=== PATIENT | female | born 1940 | race American Indian/Alaskan Native ===

== ENCOUNTER 2017-04-14 10:57 | Inpatient (IN) | payer MEDICARE ==
[2017-04-14] MEDS ORDERED: NACL 0.9% 500 ML 500 ML IV ONE (11:08)
[2017-04-14] MEDS ORDERED: NACL 0.9% 1000 ML 1,000 ML ONE (11:19)
[2017-04-14] MEDS ORDERED: NACL 0.9% 1000 ML 1,000 ML IV ONE (11:26)
[2017-04-14 11:40] LABS: Bacteria,Urine 1+ /HPF (Negative); Bilirubin,Urine NEG (Negative); Blood,Urine SM (Negative); Ketones,Urine TR mg/dL (Negative); Leukocyte Esterase,Urine MOD (Negative); Mucus,Urine FEW /HPF; Nitrite,Urine NEG (Negative); Urobilinogen,Urine < 2.0 mg/dL (<2.0)
[2017-04-14 11:43] LABS: Basophils % (Auto) 0.3 % (0.0-1.8); Eosinophils % (Auto) 0.1 % (0.0-4.3); Hematocrit 20.8 % (30.3-42.9); Hemoglobin 6.3 gm/dl (10.1-14.3); Mean Corpuscular HGB Conc 31 % (30-34); Mean Corpuscular Volume 84 fl (79-97); Red Blood Count 2.47 M/mm3 (3.65-5.03); White Blood Count 13.6 K/mm3 (4.5-11.0)
[2017-04-14 11:44] LABS: Mean Corpuscular Hemoglobin 26 pg (28-32); Platelet Count 95 K/mm3 (140-440); Red Cell Distribution Width 20.5 % (13.2-15.2)
[2017-04-14 11:52] LABS: INR 1.21 (0.87-1.13)
--- NOTE | 2017-04-14 11:55 | Emergency Department Report ---
ED Fever HPI - General Chief Complaint: Fever Stated Complaint: FEVER Time Seen by Provider: 04/14/17 11:42 Source: patient - History of Present Illness Initial Comments: Patient is a 76-year-old female here with complaint of fever and abdominal pain. She is a correction resident was recently hospitalized at [facility] for approximately one week and return to emergency department with diffuse abdominal pain. Denies chills but does have a fever at outside facility. She's been complaining of some diarrhea. She states that she has been recently on antibiotics. Abdomen is slightly distended. She describes her pain is crampy and diffuse. Timing/Duration: just prior to arrival Fever Severity/Quality: greater than 100.5 F Associated Symptoms: abdominal pain. denies: chest pain, confusion, cough, diaphoresis, headache, muscle aches, nausea/vomiting ED Review of Systems ROS: Stated complaint: FEVER Other details as noted in HPI Comment: All other systems reviewed and negative Constitutional: fever, malaise Respiratory: denies: cough, orthopnea, shortness of breath, SOB with exertion Cardiovascular: denies: chest pain, palpitations Gastrointestinal: abdominal pain, nausea, diarrhea. denies: vomiting, constipation Musculoskeletal: denies: back pain Skin: denies: rash, lesions Neurological: denies: headache, weakness Psychiatric: denies: anxiety, depression ED Past Medical Hx - Past Medical History Previous Medical History?: Yes Hx Hypertension: Yes Hx Congestive Heart Failure: Yes Hx Diabetes: Yes Hx Deep Vein Thrombosis: Yes Hx Renal Disease: Yes Hx Asthma: Yes Additional medical history: weakness, lack of coordination, chf, irritable bowel syndrome, hyperosmomolality, hypernatremia, hypothyroidism, hyperlipidemia , PVD, DVT, GERD, lupus, - Social History Smoking Status: Never Smoker Substance Use Type: None - Medications Home Medications: Home Medications Medication Instructions Recorded Confirmed Last Taken Type Amitriptyline [Elavil] 25 mg PO QHS 03/27/17 03/27/17 Unknown History AtorvaSTATin [Lipitor] 40 mg PO QHS 03/27/17 03/27/17 Unknown History Hyoscyamine Subl [Levsin Sl 0.125 0.125 mg SL Q4HR PRN 03/27/17 03/27/17 Unknown History TAB] Magnesium Oxide [Mag-Ox] 400 mg PO BID 03/27/17 03/27/17 Unknown History Melatonin 1 mg PO QHS 03/27/17 03/27/17 Unknown History Metoprolol Succinate 25 mg PO DAILY 03/27/17 03/27/17 Unknown History Pantoprazole [Protonix TAB] 40 mg PO QDAY 03/27/17 03/27/17 Unknown History Saccharomyces Boulardii [Florastor] 250 mg PO BID 03/27/17 03/27/17 Unknown History predniSONE [Deltasone] 10 mg PO QDAY 03/27/17 03/27/17 Unknown History ED Physical Exam - General Limitations: Physical Limitation General appearance: alert, in no apparent distress - Head Head exam: Present: atraumatic, normocephalic - Eye Eye exam: Present: normal appearance, PERRL, EOMI - ENT ENT exam: Present: normal exam, normal orophraynx, mucous membranes dry - Neck Neck exam: Absent: tenderness, meningismus, lymphadenopathy - Respiratory Respiratory exam: Present: normal lung sounds bilaterally. Absent: respiratory distress, wheezes - Cardiovascular Cardiovascular Exam: Present: normal rhythm, tachycardia. Absent: irregular rhythm - GI/Abdominal GI/Abdominal exam: Present: soft, distended, tenderness (diffuse) - Extremities Exam Extremities exam: Present: normal inspection, full ROM - Back Exam Back exam: Present: full ROM. Absent: CVA tenderness (R), CVA tenderness (L) - Neurological Exam Neurological exam: Present: alert, oriented X3 - Psychiatric Psychiatric exam: Present: normal affect - Skin Skin exam: Present: warm, dry, intact ED Course Vital Signs 04/14/17 04/14/17 04/14/17 10:53 11:00 11:03 Temperature Pulse Rate 114 H 115 H Respiratory 20 19 Rate Blood Pressure 92/40 84/49 Blood Pressure [Left] O2 Sat by Pulse 100 100 100 Oximetry 04/14/17 04/14/17 04/14/17 11:15 11:16 11:18 Temperature 99.8 F H Pulse Rate 113 H 117 H Respiratory 19 18 19 Rate Blood Pressure 79/42 Blood Pressure 92/40 [Left] O2 Sat by Pulse 98 96 96 Oximetry 04/14/17 04/14/17 04/14/17 11:30 11:45 12:00 Temperature Pulse Rate 110 H 104 H 105 H Respiratory 19 18 17 Rate Blood Pressure 87/43 90/41 97/44 Blood Pressure [Left] O2 Sat by Pulse 96 95 100 Oximetry 04/14/17 04/14/17 04/14/17 12:15 12:30 12:45 Temperature Pulse Rate 109 H 106 H 105 H Respiratory 17 18 20 Rate Blood Pressure 87/39 99/39 95/53 Blood Pressure [Left] O2 Sat by Pulse 94 98 100 Oximetry ED Medical Decision Making - Lab Data Result diagrams: 04/14/17 11:19 04/14/17 11:19 Abnormal Lab Results 04/14/17 04/14/17 04/14/17 11:16 11:19 11:19 WBC 13.6 H RBC 2.47 L Hgb 6.3 L Hct 20.8 L MCV 84 MCH 26 L MCHC 31 RDW 20.5 H Plt Count 95 L Lymph % (Auto) 3.2 L [place] % (Auto) 7.6 H Eos % (Auto) 0.1 Baso % (Auto) 0.3 Lymph # 0.4 L [place] # 1.0 H Eos # 0.0 Baso # 0.0 Seg Neutrophils % 88.8 H Seg Neutrophils # 12.1 H PT 15.9 H INR 1.21 H VBG pH Urine Color Yellow Urine Turbidity Cloudy Urine pH 5.0 Ur Specific [place] 1.014 Urine Protein 30 mg/dl Urine Glucose (UA) Neg Urine Ketones Tr Urine Blood Sm Urine Nitrite Neg Urine Bilirubin Neg Urine Urobilinogen < 2.0 Ur Leukocyte Esterase Mod Urine WBC (Auto) 132.0 H Urine RBC (Auto) 13.0 U Epithel Cells (Auto) 1.0 Urine Bacteria (Auto) 1+ Urine Mucus Few 04/14/17 11:19 WBC RBC Hgb Hct MCV MCH MCHC RDW Plt Count Lymph % (Auto) [place] % (Auto) Eos % (Auto) Baso % (Auto) Lymph # [place] # Eos # Baso # Seg Neutrophils % Seg Neutrophils # PT INR VBG pH 7.396 Urine Color Urine Turbidity Urine pH Ur Specific [place] Urine Protein Urine Glucose (UA) Urine Ketones Urine Blood Urine Nitrite Urine Bilirubin Urine Urobilinogen Ur Leukocyte Esterase Urine WBC (Auto) Urine RBC (Auto) U Epithel Cells (Auto) Urine Bacteria (Auto) Urine Mucus - EKG Data -: EKG Interpreted by La - EKG Data 04/14/17 12:00 Sinus tach 116 normal axis normal intervals she has T-wave inversions in leads V5 and V6 in addition to I, II, and aVL. - Medical Decision Making Patient is a 76-year-old female with recent prolonged admission to the hospital here with abdominal pain and diarrhea. She has a low-grade temperature and diffuse abdominal tenderness on clinical exam. She states that she was recently on antibiotics. Her blood pressure is running low I spoke to her about this at length and she said states that she normally runs low. I reviewed some prior visits and her blood pressure does tend to run between 105 systolic and in the 80s systolic. Plan to give her 1 L of fluid because she is on dialysis. We'll cover empirically for sepsis with antibiotic IV antibiotics I have a higher suspicion for possible C. difficile at this point. Of note she has been on any coagulation in the past including Coumadin and Eliquis. I will need discussed this further if we decide to put further vascular access and her. I discussed the case with EMS and plan to admit her. We'll continue IV antibiotics at this point. At this point I do not have a clear source for her infection although she likely has a UTI this doesn't easily explain her abdominal pain. Portions of this chart were dictated with dictation software. There may be dictation errors contained within this note. Critical Care Time: Yes (40) Critical care attestation.: If time is entered above; I have spent that time in minutes in the direct care of this critically ill patient, excluding procedure time. ED Disposition Clinical Impression: Sepsis, UTI (urinary tract infection), Abdominal pain Disposition: [id number] OP ADMIT IP TO THIS HOSP Is pt being admited?: Yes Condition: Critical Referrals: PRIMARY CARE, [Primary Care Provider] - 3-5 Days
[2017-04-14 11:57] LABS: Albumin 2.1 g/dL (3.9-5); Albumin/Globulin Ratio 0.8 %; Alkaline Phosphatase 58 units/L (35-129); Anion Gap 21 mmol/L; Blood Urea Nitrogen 30 mg/dL (7-17); Calcium 7.8 mg/dL (8.4-10.2); Carbon Dioxide 18 mmol/L (22-30); Chloride 102.3 mmol/L (98-107); Glucose 116 mg/dL (65-100); Lipase 13 units/L (13-60); Potassium 5.2 mmol/L (3.6-5.0); Sodium 136 mmol/L (137-145); Total Protein 4.8 g/dL (6.3-8.2)
[2017-04-14] MEDS ORDERED: ZOSYN/NS 4.5GM/100ML 4.5 GM/100 ML VIAL IV ONE (11:57)
[2017-04-14] MEDS ORDERED: MORPHINE IV ONE (11:57)
[2017-04-14] MEDS ORDERED: VANCOMYCIN/NS 1 GM/250 ML 1 GM/250 ML BAG IV ONE (11:57)
--- NOTE | 2017-04-14 12:00 | XRay Report ---
Single view chest: Compared to 03/27/17. History: Possible sepsis. Findings: Cardiomegaly. Trachea is midline. Tip of right vascular catheter upper superior vena cava. Left CP angle not visualized. Linear densities are identified left lower lobe probably related to discoid atelectasis or scarring. No acute consolidation. Impression: Findings as detailed above.
[2017-04-14 12:01] LABS: Alanine Aminotransferase < 5 units/L (7-56)
[2017-04-14] MEDS ORDERED: LEVSIN SL SL PRN (14:21)
--- NOTE | 2017-04-14 14:21 | History and Physical Report ---
History of Present Illness Date of examination: 04/14/17 Date of admission: 04/14/17 Chief complaint: Fever and abdominal pain for 2 days History of present illness: ROSA Patient is a 76-year-old female here with complaint of fever and abdominal pain. She is a long term resident was recently hospitalized at [facility] for approximately one week and return to emergency department with diffuse abdominal pain. Denies chills but does have a fever at outside facility. She's been complaining of some diarrhea. She states that she has been recently on antibiotics. Abdomen is slightly distended. She describes her pain is crampy and diffu Fever greater than 100.5 F Associated Symptoms: abdominal pain. denies: chest pain, confusion, cough, diaphoresis, headache, muscle aches, nausea/vomiting - Past Medical History Previous Medical History?: Yes Hx Hypertension: Yes Hx Congestive Heart Failure: Yes Hx Diabetes: Yes Hx Deep Vein Thrombosis: Yes Hx Renal Disease: Yes Hx Asthma: Yes Additional medical history: weakness, lack of coordination, chf, irritable bowel syndrome, hyperosmomolality, hypernatremia, hypothyroidism, hyperlipidemia , PVD, DVT, GERD, lupus, - Social History Smoking Status: Never Smoker Substance Use Type: None Fam Hx Htn - Medications Home Medications: Home Medications Medication Instructions Recorded Confirmed Last Taken Type Amitriptyline [Elavil] 25 mg PO QHS 03/27/17 03/27/17 Unknown History AtorvaSTATin [Lipitor] 40 mg PO QHS 03/27/17 03/27/17 Unknown History Hyoscyamine Subl [Levsin Sl 0.125 0.125 mg SL Q4HR PRN 03/27/17 03/27/17 Unknown History TAB] Magnesium Oxide [Mag-Ox] 400 mg PO BID 03/27/17 03/27/17 Unknown History Melatonin 1 mg PO QHS 03/27/17 03/27/17 Unknown History Metoprolol Succinate 25 mg PO DAILY 03/27/17 03/27/17 Unknown History Pantoprazole [Protonix TAB] 40 mg PO QDAY 03/27/17 03/27/17 Unknown History Saccharomyces Boulardii [Florastor] 250 mg PO BID 03/27/17 03/27/17 Unknown History predniSONE [Deltasone] 10 mg PO QDAY 03/27/17 03/27/17 Unknown History ROS: Stated complaint: FEVER Other details as noted in HPI Comment: All other systems reviewed and negative Constitutional: fever, malaise Respiratory: denies: cough, orthopnea, shortness of breath, SOB with exertion Cardiovascular: denies: chest pain, palpitations Gastrointestinal: abdominal pain, nausea, diarrhea. denies: vomiting, constipation Musculoskeletal: denies: back pain Skin: denies: rash, lesions Neurological: denies: headache, weakness Psychiatric: denies: anxiety, depression Past History Past Medical History: ESRD Medications and Allergies Allergies Allergy/AdvReac Type Severity Reaction Status Date / Time milk Allergy Unknown Verified 03/27/17 14:02 wheat Allergy Unknown Verified 03/27/17 14:02 Home Medications Medication Instructions Recorded Confirmed Last Taken Type Amitriptyline [Elavil] 25 mg PO QHS 03/27/17 03/27/17 Unknown History AtorvaSTATin [Lipitor] 40 mg PO QHS 03/27/17 03/27/17 Unknown History Hyoscyamine Subl [Levsin Sl 0.125 0.125 mg SL Q4HR PRN 03/27/17 03/27/17 Unknown History TAB] Magnesium Oxide [Mag-Ox] 400 mg PO BID 03/27/17 03/27/17 Unknown History Melatonin 1 mg PO QHS 03/27/17 03/27/17 Unknown History Metoprolol Succinate 25 mg PO DAILY 03/27/17 03/27/17 Unknown History Pantoprazole [Protonix TAB] 40 mg PO QDAY 03/27/17 03/27/17 Unknown History Saccharomyces Boulardii [Florastor] 250 mg PO BID 03/27/17 03/27/17 Unknown History predniSONE [Deltasone] 10 mg PO QDAY 03/27/17 03/27/17 Unknown History Exam - Physical Exam Narrative exam: Lying comfortably - Constitutional Vitals: Temp Pulse Resp BP Pulse Ox 99.8 F H 108 H 18 97/52 98 04/14/17 11:16 04/14/17 13:15 04/14/17 13:15 04/14/17 13:15 04/14/17 13:15 General appearance: Present: no acute distress, well-nourished - EENT Eyes: Present: PERRL ENT: hearing intact, clear oral mucosa - Neck Neck: Present: supple, normal ROM - Respiratory Respiratory effort: normal Respiratory: bilateral: CTA - Cardiovascular Heart Sounds: Present: S1 & S2. Absent: rub, click - Extremities Extremities: pulses symmetrical, No edema Peripheral Pulses: within normal limits - Abdominal General gastrointestinal: Present: soft, non-tender, non-distended, normal bowel sounds Female genitourinary: Present: normal - Integumentary Integumentary: Present: clear, warm, dry - Musculoskeletal Musculoskeletal: gait normal, strength equal bilaterally - Psychiatric Psychiatric: appropriate mood/affect, intact judgment & insight - Neurologic Neurologic: CNII-XII intact, moves all extremities Results - Labs CBC & Chem 7: 04/14/17 11:19 04/14/17 11:19 Labs: Laboratory Last Values WBC 13.6 K/mm3 (4.5-11.0) H 04/14/17 11:19 RBC 2.47 M/mm3 (3.65-5.03) L 04/14/17 11:19 Hgb 6.3 gm/dl (10.1-14.3) L 04/14/17 11:19 Hct 20.8 % (30.3-42.9) L 04/14/17 11:19 MCV 84 fl (79-97) 04/14/17 11:19 MCH 26 pg (28-32) L 04/14/17 11:19 MCHC 31 % (30-34) 04/14/17 11:19 RDW 20.5 % (13.2-15.2) H 04/14/17 11:19 Plt Count 95 K/mm3 (140-440) L 04/14/17 11:19 Lymph % (Auto) 3.2 % (13.4-35.0) L 04/14/17 11:19 [place] % (Auto) 7.6 % (0.0-7.3) H 04/14/17 11:19 Eos % (Auto) 0.1 % (0.0-4.3) 04/14/17 11:19 Baso % (Auto) 0.3 % (0.0-1.8) 04/14/17 11:19 Lymph # 0.4 K/mm3 (1.2-5.4) L 04/14/17 11:19 [place] # 1.0 K/mm3 (0.0-0.8) H 04/14/17 11:19 Eos # 0.0 K/mm3 (0.0-0.4) 04/14/17 11:19 Baso # 0.0 K/mm3 (0.0-0.1) 04/14/17 11:19 Seg Neutrophils % 88.8 % (40.0-70.0) H 04/14/17 11:19 Seg Neutrophils # 12.1 K/mm3 (1.8-7.7) H 04/14/17 11:19 PT 15.9 Sec. (12.2-14.9) H 04/14/17 11:19 INR 1.21 (0.87-1.13) H 04/14/17 11:19 VBG pH 7.396 (7.320-7.420) 04/14/17 11:19 Sodium 136 mmol/L (137-145) L 04/14/17 11:19 Potassium 5.2 mmol/L (3.6-5.0) H 04/14/17 11:19 Chloride 102.3 mmol/L (98-107) 04/14/17 11:19 Carbon Dioxide 18 mmol/L (22-30) L 04/14/17 11:19 Anion Gap 21 mmol/L 04/14/17 11:19 BUN 30 mg/dL (7-17) H 04/14/17 11:19 Creatinine 2.4 mg/dL (0.7-1.2) H 04/14/17 11:19 Estimated GFR 24 ml/min 04/14/17 11:19 BUN/Creatinine Ratio 12.50 % 04/14/17 11:19 Glucose 116 mg/dL (65-100) H 04/14/17 11:19 Lactic Acid 3.60 mmol/L (0.7-2.0) H* 04/14/17 11:19 Calcium 7.8 mg/dL (8.4-10.2) L 04/14/17 11:19 Total Bilirubin 0.30 mg/dL (0.1-1.2) 04/14/17 11:19 AST 8 units/L (5-40) 04/14/17 11:19 ALT < 5 units/L (7-56) L 04/14/17 11:19 Alkaline Phosphatase 58 units/L (35-129) 04/14/17 11:19 Total Protein 4.8 g/dL (6.3-8.2) L 04/14/17 11:19 Albumin 2.1 g/dL (3.9-5) L 04/14/17 11:19 Albumin/Globulin Ratio 0.8 % 04/14/17 11:19 Lipase 13 units/L (13-60) 04/14/17 11:19 Urine Color Yellow (Yellow) 04/14/17 11:16 Urine Turbidity Cloudy (Clear) 04/14/17 11:16 Urine pH 5.0 (5.0-7.0) 04/14/17 11:16 Ur Specific [place] 1.014 (1.003-1.030) 04/14/17 11:16 Urine Protein 30 mg/dl mg/dL (Negative) 04/14/17 11:16 Urine Glucose (UA) Neg mg/dL (Negative) 04/14/17 11:16 Urine Ketones Tr mg/dL (Negative) 04/14/17 11:16 Urine Blood Sm (Negative) 04/14/17 11:16 Urine Nitrite Neg (Negative) 04/14/17 11:16 Urine Bilirubin Neg (Negative) 04/14/17 11:16 Urine Urobilinogen < 2.0 mg/dL (<2.0) 04/14/17 11:16 Ur Leukocyte Esterase Mod (Negative) 04/14/17 11:16 Urine WBC (Auto) 132.0 /HPF (0.0-6.0) H 04/14/17 11:16 Urine RBC (Auto) 13.0 /HPF (0.0-6.0) 04/14/17 11:16 U Epithel Cells (Auto) 1.0 /HPF (0-13.0) 04/14/17 11:16 Urine Bacteria (Auto) 1+ /HPF (Negative) 04/14/17 11:16 Urine Mucus Few /HPF 04/14/17 11:16 Blood Type B POSITIVE 04/14/17 12:57 Antibody Screen TNR 04/14/17 12:57 FAROOQ Antibody Screen Negative 04/14/17 12:57 Assessment and Plan Advance Directives: Yes (full code) VTE prophylaxis?: Chemical Plan of care discussed with patient/family: Yes - Patient Problems (1) Sepsis Current Visit: Yes Status: Acute Qualifiers: Sepsis type: sepsis due to unspecified organism Qualified Code(s): A41.9 - Sepsis, unspecified organism Plan to address problem: Sepsis probably secondary to urinary tract infection. Patient started on Zosyn and vancomycin. Check urine cultures. Patient had a femoral line inserted in the emergency room (2) Hypotension Current Visit: Yes Status: Acute Qualifiers: Hypotension type: unspecified hypotension type Trimester: T Qualified Code(s): I95.9 - Hypotension, unspecified Plan to address problem: IV fluids for now. Prevent volume load. Patient has end-stage renal disease. (3) UTI (urinary tract infection) Current Visit: Yes Status: Acute Qualifiers: Urinary tract infection type: acute cystitis Hematuria presence: H Indwelling urinary catheter type: I Encounter type: E Plan to address problem: Patient on Zosyn (4) End stage renal disease Current Visit: Yes Status: Acute Plan to address problem: Continue dialysis (5) Hyperlipidemia Current Visit: Yes Status: Chronic Qualifiers: Hyperlipidemia type: mixed hyperlipidemia Qualified Code(s): E78.2 - Mixed hyperlipidemia Plan to address problem: Continue atorvastatin (6) Diarrhea Current Visit: Yes Status: Acute Qualifiers: Diarrhea type: D Plan to address problem: Rule out C. difficile colitis. C. difficile antigen ordered. (7) DVT prophylaxis Current Visit: No Status: Chronic Plan to address problem: On heparin 5000 subcutaneous every 12
[2017-04-14] MEDS: ZOSYN/NS 2.25 GM/50ML 2.25 GM/50 ML BAG IV SCH ×2 (14:59→22:05)
[2017-04-14] MEDS ORDERED: VANCOMYCIN PHARMACY TO DOSE IV SCH (15:00)
[2017-04-14] MEDS ORDERED: PROTONIX PO ONE (15:03)
[2017-04-14] MEDS: PROTONIX PO SCH (15:07)
[2017-04-14] MEDS ORDERED: VANCOMYCIN 1,500 MG in NACL 0.9% 500 ML 500 ML IV ONE (16:00)
[2017-04-14] MEDS: MAG-OX PO SCH ×2 (18:48→22:05)
[2017-04-14] MEDS ORDERED: MELATONIN 1 MG PO SCH (22:00)
[2017-04-14] MEDS: ELAVIL PO SCH (22:05)
--- NOTE | 2017-04-14 23:07 | Event Note ---
Chart reviewed discussed with ER MD No indication for dialysis will follow Chart reviewed in ricardo
[2017-04-15 00:33] LABS: ISTAT Base Excess -1; ISTAT HCO3 22.4; ISTAT PCO2 28.4 (35-45); ISTAT PH 7.504 (7.35-7.45); ISTAT PO2 240 (80-105); ISTAT SO2 100; ISTAT TCO2 23
[2017-04-15] MEDS ORDERED: NACL 0.9% 500 ML 500 ML IV ONE (00:43)
--- NOTE | 2017-04-15 01:30 | XRay Report ---
FINAL REPORT PROCEDURE: XR ABDOMEN 1V AP TECHNIQUE: Abdominal radiograph, single supine AP view. HISTORY: abdominal pain COMPARISON: No prior studies are available for comparison. FINDINGS: Bowel gas pattern:Nonobstructive. There is significant gas and fecal debris in the colon.. Masses or calcifications:There has been previous cholecystectomy. Bony structures:No significant abnormality. Other:A catheter overlies the right lower pelvis. Multiple monitoring wires overlie the upper abdomen.. IMPRESSION: No acute abnormality
[2017-04-15] MEDS: ZOSYN/NS 2.25 GM/50ML 2.25 GM/50 ML BAG IV SCH ×4 (05:58→18:23)
[2017-04-15] MEDS: DILAUDID IV PRN ×3 (05:58→17:25)
[2017-04-15 07:55] LABS: Hematocrit 22.2 % (30.3-42.9); Hemoglobin 7.3 gm/dl (10.1-14.3); Mean Corpuscular HGB Conc 33 % (30-34); Mean Corpuscular Hemoglobin 27 pg (28-32); Mean Corpuscular Volume 82 fl (79-97); Platelet Count 94 K/mm3 (140-440); Red Blood Count 2.71 M/mm3 (3.65-5.03); Red Cell Distribution Width 18.3 % (13.2-15.2); White Blood Count 13.7 K/mm3 (4.5-11.0)
--- NOTE | 2017-04-15 08:12 | Progress Note ---
<TURNER CANSECO - Last Filed: 04/15/17 12:38> Assessment and Plan Assessment and plan: Sepsis Elevated urine WBC and leukocytosis Most likely secondary to urinary tract infection Urine culture and blood culture collected and we will follow cultures Patient started on empiric antibiotic treatment Zosyn and vancomycin Patient had a femoral line inserted in the emergency room Gentle IV fluid hydration Hypotension Gently IV fluids because patient end-stage renal disease. Closely monitor blood pressure Leukocytosis Most likely secondary to urinary tract infection We will repeat CBC UTI (urinary tract infection) Patient was started on Zosyn and vancomycin Gently IV fluids End stage renal disease Hemodialysis Managed By nephrology Hyperlipidemia Continue on home antilipid pills Discussed with the patient about the importance of physical exercise, low-fat diet reducing intake of high-fat foods to improve cardiovascular diseases. Diarrhea Rule out C. difficile colitis. C. difficile antigen pending DVT prophylaxis On heparin 5000 subcutaneous every 12 History Interval history: Patient has uneventful overnight, she denies shortness of breath, chest pain or lightheadedness. Hospitalist Physical - Constitutional Vitals: Temp Pulse Resp BP Pulse Ox 99.0 F 65 20 95/51 98 04/15/17 04:41 04/15/17 04:41 04/15/17 04:41 04/15/17 04:41 04/15/17 04:41 General appearance: Present: no acute distress, well-nourished - EENT Eyes: Present: PERRL ENT: hearing intact - Neck Neck: Present: supple - Respiratory Respiratory effort: normal Results - Labs CBC & Chem 7: 04/15/17 07:42 04/15/17 07:42 Labs: Laboratory Last Values WBC 13.7 K/mm3 (4.5-11.0) H 04/15/17 07:42 RBC 2.71 M/mm3 (3.65-5.03) L 04/15/17 07:42 Hgb 7.3 gm/dl (10.1-14.3) L 04/15/17 07:42 Hct 22.2 % (30.3-42.9) L 04/15/17 07:42 MCV 82 fl (79-97) 04/15/17 07:42 MCH 27 pg (28-32) L 04/15/17 07:42 MCHC 33 % (30-34) 04/15/17 07:42 RDW 18.3 % (13.2-15.2) H 04/15/17 07:42 Plt Count 94 K/mm3 (140-440) L 04/15/17 07:42 Lymph % (Auto) 3.2 % (13.4-35.0) L 04/14/17 11:19 [place] % (Auto) 7.6 % (0.0-7.3) H 04/14/17 11:19 Eos % (Auto) 0.1 % (0.0-4.3) 04/14/17 11:19 Baso % (Auto) 0.3 % (0.0-1.8) 04/14/17 11:19 Lymph # 0.4 K/mm3 (1.2-5.4) L 04/14/17 11:19 [place] # 1.0 K/mm3 (0.0-0.8) H 04/14/17 11:19 Eos # 0.0 K/mm3 (0.0-0.4) 04/14/17 11:19 Baso # 0.0 K/mm3 (0.0-0.1) 04/14/17 11:19 Seg Neutrophils % 88.8 % (40.0-70.0) H 04/14/17 11:19 Seg Neutrophils # 12.1 K/mm3 (1.8-7.7) H 04/14/17 11:19 PT 15.9 Sec. (12.2-14.9) H 04/14/17 11:19 INR 1.21 (0.87-1.13) H 04/14/17 11:19 POC ABG pH 7.504 (7.35-7.45) H 04/15/17 00:24 POC ABG pCO2 28.4 (35-45) L 04/15/17 00:24 POC ABG pO2 240 (80-105) H 04/15/17 00:24 POC ABG HCO3 22.4 04/15/17 00:24 POC ABG Total CO2 23 04/15/17 00:24 POC ABG O2 Sat 100 04/15/17 00:24 POC ABG Base Excess -1 04/15/17 00:24 VBG pH 7.396 (7.320-7.420) 04/14/17 11:19 FiO2 50 % 04/15/17 00:24 Sodium 136 mmol/L (137-145) L 04/14/17 11:19 Potassium 5.2 mmol/L (3.6-5.0) H 04/14/17 11:19 Chloride 102.3 mmol/L (98-107) 04/14/17 11:19 Carbon Dioxide 18 mmol/L (22-30) L 04/14/17 11:19 Anion Gap 21 mmol/L 04/14/17 11:19 BUN 30 mg/dL (7-17) H 04/14/17 11:19 Creatinine 2.4 mg/dL (0.7-1.2) H 04/14/17 11:19 Estimated GFR 24 ml/min 04/14/17 11:19 BUN/Creatinine Ratio 12.50 % 04/14/17 11:19 Glucose 116 mg/dL (65-100) H 04/14/17 11:19 POC Glucose 96 (70-105) 04/15/17 00:06 Lactic Acid 1.70 mmol/L (0.7-2.0) 04/14/17 14:05 Calcium 7.8 mg/dL (8.4-10.2) L 04/14/17 11:19 Total Bilirubin 0.30 mg/dL (0.1-1.2) 04/14/17 11:19 AST 8 units/L (5-40) 04/14/17 11:19 ALT < 5 units/L (7-56) L 04/14/17 11:19 Alkaline Phosphatase 58 units/L (35-129) 04/14/17 11:19 Total Protein 4.8 g/dL (6.3-8.2) L 04/14/17 11:19 Albumin 2.1 g/dL (3.9-5) L 04/14/17 11:19 Albumin/Globulin Ratio 0.8 % 04/14/17 11:19 Lipase 13 units/L (13-60) 04/14/17 11:19 Urine Color Yellow (Yellow) 04/14/17 11:16 Urine Turbidity Cloudy (Clear) 04/14/17 11:16 Urine pH 5.0 (5.0-7.0) 04/14/17 11:16 Ur Specific [place] 1.014 (1.003-1.030) 04/14/17 11:16 Urine Protein 30 mg/dl mg/dL (Negative) 04/14/17 11:16 Urine Glucose (UA) Neg mg/dL (Negative) 04/14/17 11:16 Urine Ketones Tr mg/dL (Negative) 04/14/17 11:16 Urine Blood Sm (Negative) 04/14/17 11:16 Urine Nitrite Neg (Negative) 04/14/17 11:16 Urine Bilirubin Neg (Negative) 04/14/17 11:16 Urine Urobilinogen < 2.0 mg/dL (<2.0) 04/14/17 11:16 Ur Leukocyte Esterase Mod (Negative) 04/14/17 11:16 Urine WBC (Auto) 132.0 /HPF (0.0-6.0) H 04/14/17 11:16 Urine RBC (Auto) 13.0 /HPF (0.0-6.0) 04/14/17 11:16 U Epithel Cells (Auto) 1.0 /HPF (0-13.0) 04/14/17 11:16 Urine Bacteria (Auto) 1+ /HPF (Negative) 04/14/17 11:16 Urine Mucus Few /HPF 04/14/17 11:16 Blood Type B POSITIVE 04/14/17 12:57 Antibody Screen TNR 04/14/17 12:57 FAROOQ Antibody Screen Negative 04/14/17 12:57 Crossmatch See Detail 04/14/17 12:57 <LAURA SCHERER - Last Filed: 04/15/17 19:14> Assessment and Plan Assessment and plan: I saw and evaluated the patient. I agree with the findings and the plan of care as documented in the Nurse Practitioner's~note, with the following corrections and additions. Patient has positive blood cultures for gram-positive cocci, patient is already on vancomycin and Zosyn In the setting of end-stage renal disease, gram-positive bacteremia, ID consult Repeat blood cultures, and follow culture sensitivities Patient's condition and treatment plan discussed in detail with the patient, family member, nose and the case management Hospitalist Physical - Constitutional Vitals: Temp Pulse Resp BP Pulse Ox 98.4 F 115 H 20 117/61 98 04/15/17 12:00 04/15/17 12:00 04/15/17 12:00 04/15/17 12:00 04/15/17 12:00 Results - Labs CBC & Chem 7: 04/15/17 07:42 04/15/17 07:42 Labs: Laboratory Last Values WBC 13.7 K/mm3 (4.5-11.0) H 04/15/17 07:42 RBC 2.71 M/mm3 (3.65-5.03) L 04/15/17 07:42 Hgb 7.3 gm/dl (10.1-14.3) L 04/15/17 07:42 Hct 22.2 % (30.3-42.9) L 04/15/17 07:42 MCV 82 fl (79-97) 04/15/17 07:42 MCH 27 pg (28-32) L 04/15/17 07:42 MCHC 33 % (30-34) 04/15/17 07:42 RDW 18.3 % (13.2-15.2) H 04/15/17 07:42 Plt Count 94 K/mm3 (140-440) L 04/15/17 07:42 Lymph % (Auto) 3.2 % (13.4-35.0) L 04/14/17 11:19 [place] % (Auto) 7.6 % (0.0-7.3) H 04/14/17 11:19 Eos % (Auto) 0.1 % (0.0-4.3) 04/14/17 11:19 Baso % (Auto) 0.3 % (0.0-1.8) 04/14/17 11:19 Lymph # 0.4 K/mm3 (1.2-5.4) L 04/14/17 11:19 [place] # 1.0 K/mm3 (0.0-0.8) H 04/14/17 11:19 Eos # 0.0 K/mm3 (0.0-0.4) 04/14/17 11:19 Baso # 0.0 K/mm3 (0.0-0.1) 04/14/17 11:19 Seg Neutrophils % 88.8 % (40.0-70.0) H 04/14/17 11:19 Seg Neutrophils # 12.1 K/mm3 (1.8-7.7) H 04/14/17 11:19 PT 15.9 Sec. (12.2-14.9) H 04/14/17 11:19 INR 1.21 (0.87-1.13) H 04/14/17 11:19 POC ABG pH 7.504 (7.35-7.45) H 04/15/17 00:24 POC ABG pCO2 28.4 (35-45) L 04/15/17 00:24 POC ABG pO2 240 (80-105) H 04/15/17 00:24 POC ABG HCO3 22.4 04/15/17 00:24 POC ABG Total CO2 23 04/15/17 00:24 POC ABG O2 Sat 100 04/15/17 00:24 POC ABG Base Excess -1 04/15/17 00:24 VBG pH 7.396 (7.320-7.420) 04/14/17 11:19 FiO2 50 % 04/15/17 00:24 Sodium 141 mmol/L (137-145) 04/15/17 07:42 Potassium 4.8 mmol/L (3.6-5.0) 04/15/17 07:42 Chloride 108.6 mmol/L (98-107) H 04/15/17 07:42 Carbon Dioxide 19 mmol/L (22-30) L 04/15/17 07:42 Anion Gap 18 mmol/L 04/15/17 07:42 BUN 32 mg/dL (7-17) H 04/15/17 07:42 Creatinine 2.3 mg/dL (0.7-1.2) H 04/15/17 07:42 Estimated GFR 25 ml/min 04/15/17 07:42 BUN/Creatinine Ratio 13.91 % 04/15/17 07:42 Glucose 79 mg/dL (65-100) 04/15/17 07:42 POC Glucose 96 (70-105) 04/15/17 00:06 Lactic Acid 1.70 mmol/L (0.7-2.0) 04/14/17 14:05 Calcium 7.4 mg/dL (8.4-10.2) L 04/15/17 07:42 Total Bilirubin 0.30 mg/dL (0.1-1.2) 04/14/17 11:19 AST 8 units/L (5-40) 04/14/17 11:19 ALT < 5 units/L (7-56) L 04/14/17 11:19 Alkaline Phosphatase 58 units/L (35-129) 04/14/17 11:19 Total Protein 4.8 g/dL (6.3-8.2) L 04/14/17 11:19 Albumin 2.1 g/dL (3.9-5) L 04/14/17 11:19 Albumin/Globulin Ratio 0.8 % 04/14/17 11:19 Lipase 13 units/L (13-60) 04/14/17 11:19 Urine Color Yellow (Yellow) 04/14/17 11:16 Urine Turbidity Cloudy (Clear) 04/14/17 11:16 Urine pH 5.0 (5.0-7.0) 04/14/17 11:16 Ur Specific [place] 1.014 (1.003-1.030) 04/14/17 11:16 Urine Protein 30 mg/dl mg/dL (Negative) 04/14/17 11:16 Urine Glucose (UA) Neg mg/dL (Negative) 04/14/17 11:16 Urine Ketones Tr mg/dL (Negative) 04/14/17 11:16 Urine Blood Sm (Negative) 04/14/17 11:16 Urine Nitrite Neg (Negative) 04/14/17 11:16 Urine Bilirubin Neg (Negative) 04/14/17 11:16 Urine Urobilinogen < 2.0 mg/dL (<2.0) 04/14/17 11:16 Ur Leukocyte Esterase Mod (Negative) 04/14/17 11:16 Urine WBC (Auto) 132.0 /HPF (0.0-6.0) H 04/14/17 11:16 Urine RBC (Auto) 13.0 /HPF (0.0-6.0) 04/14/17 11:16 U Epithel Cells (Auto) 1.0 /HPF (0-13.0) 04/14/17 11:16 Urine Bacteria (Auto) 1+ /HPF (Negative) 04/14/17 11:16 Urine Mucus Few /HPF 04/14/17 11:16 Blood Type B POSITIVE 04/14/17 12:57 Antibody Screen TNR 04/14/17 12:57 FAROOQ Antibody Screen Negative 04/14/17 12:57 Crossmatch See Detail 04/14/17 12:57
[2017-04-15 08:15] LABS: BUN/Creatinine Ratio 13.91; Calcium 7.4 mg/dL (8.4-10.2); Chloride 108.6 mmol/L (98-107); Potassium 4.8 mmol/L (3.6-5.0)
--- NOTE | 2017-04-15 09:44 | Admit Criteria Form ---
Admission Criteria Documentation: SEPSIS and OTHER FEBRILE ILLNESS, W/O FOCAL INFECTION Clinical Indications for Admission to Inpatient Care ( Place 'X' for any and all applicable criteria): Admission is indicated for ANY ONE of the following (1)(2)(3)(4): [ ] I. Bacteremia [ ]II. Suspected or identified specific infection requiring hospitalization (eg, meningitis, endocarditis) [ ]III. Hemodynamic instability [ ]IV. Altered mental status [ ]V. Failure or unavailability of outpatient antimicrobial treatment [ ]. Hypoxemia [ ]VII. Seizures [ ]VIII. High-risk febrile neutropenia [ ]IX. Need for parenteral antibiotic in patient who is likely to abuse vascular access device (eg, injection drug user) [A](7) [ ]X. Temperature greater than 104.9 degrees F (40.5 degrees C) (oral) [X]XI. Inpatient admission required rather than observation care because of ANY ONE of the following: [ ]1) Specific infection identified that is too severe for outpatient treatment or observation care trial [ ]2) Metabolic disorder (eg, hypoglycemia, hyperglycemia, metabolic acidosis) that is severe or persistent [ ]3) Temperature greater than 103.1 degrees F (39.5 degrees C) ( oral) that is not responsive to observation care treatment [ ]4) IV fluid to replace significant ongoing (eg, for over 24 hours) losses (> 3 L/m2 per day) [ ]5) Supplemental oxygen or respiratory treatments for over 24 hours that is performable only in acute inpatient setting [ ]6) Parenteral nutrition regimen need that must be implemented on inpatient basis [ ]7) Strict or protective (eg, laminar flow) isolation [X]8) Other condition, treatment or monitoring requiring inpatient admission Extended stay beyond goal length of stay may be needed for(1)(3) [ ]a) Sepsis or septic shock(22) [ ]b) Positive blood cultures [ ]c) Insufficient oral intake [ ]d) High-risk febrile neutropenia(29)(30) [ ]e) Continued fever and clinical instability [ ]f) Clinically active comorbid illness (e.g,heart failure, renal failure , diabetes) The original [facility] content created by Faye Oliveira has been revised. The portions of the content which have been revised are identified through the use of italic text or in bold, and Faye Oliveira has neither reviewed nor approved the modified material. All other unmodified content is copyright [facility]. Please see references footnoted in the original [facility] edition 2016 Admission Criteria Met: Yes
--- NOTE | 2017-04-15 10:15 | Consultation ---
History of Present Illness - History of Present Illness Thank you for the consultation [id number] dictated Patient was evaluated today Assessment and plan End-stage renal disease patient is currently on maintenance hemodialysis, will receive hemodialysis during this admission at least 3 times per week monitor dialysis related labs Hypertension and volume to monitor and follow ultrafiltration as tolerated Blood culture currently positive with gram-positive cocci in clusters needs coverage of antibiotic infectious disease consultation in my opinion, dameon CVC source Admitted with sepsis-like picture has had lactic acidosis which is currently better Anemia in end-stage renal disease to follow erythropoietin as needed, appears to be moderately severe patient will require 1-2 unit of packed red blood cell transfusion Renal mass needs to see urology please consult Pancreatic mass / colonic stricture to see GI Please order for type and cross Secondary hyperparathyroidism to monitor phosphorus and PTH level Hypotension better Adequately counseled and educated regarding renal related issues We'll continue to follow and make recommendation from renal standpoint Past History Past Medical History: ESRD Medications and Allergies Allergies Allergy/AdvReac Type Severity Reaction Status Date / Time milk Allergy Unknown Verified 03/27/17 14:02 wheat Allergy Unknown Verified 03/27/17 14:02 Home Medications Medication Instructions Recorded Confirmed Last Taken Type Amitriptyline [Elavil] 25 mg PO QHS 03/27/17 03/27/17 Unknown History AtorvaSTATin [Lipitor] 40 mg PO QHS 03/27/17 03/27/17 Unknown History Hyoscyamine Subl [Levsin Sl 0.125 0.125 mg SL Q4HR PRN 03/27/17 03/27/17 Unknown History TAB] Magnesium Oxide [Mag-Ox] 400 mg PO BID 03/27/17 03/27/17 Unknown History Melatonin 1 mg PO QHS 03/27/17 03/27/17 Unknown History Metoprolol Succinate 25 mg PO DAILY 03/27/17 03/27/17 Unknown History Pantoprazole [Protonix TAB] 40 mg PO QDAY 03/27/17 03/27/17 Unknown History Saccharomyces Boulardii [Florastor] 250 mg PO BID 03/27/17 03/27/17 Unknown History predniSONE [Deltasone] 10 mg PO QDAY 03/27/17 03/27/17 Unknown History Active Meds: Active Medications Amitriptyline HCl (Elavil) 25 mg PO QHS [facility] Last Admin: 04/14/17 22:05 Dose: 25 mg Atorvastatin Calcium (Lipitor) 40 mg PO QHS [facility] Last Admin: 04/14/17 22:05 Dose: 40 mg Hydromorphone HCl (Dilaudid) 0.25 mg IV Q3H PRN PRN Reason: Pain, Moderate (4-6) Last Admin: 04/15/17 05:58 Dose: 0.25 mg Hyoscyamine (Levsin Sl) 0.125 mg SL Q4HR PRN PRN Reason: Spasms Piperacillin Sod/Tazobactam Sod (Zosyn/Ns 2.25 Gm/50ml) 2.25 gm in 50 mls @ 100 mls/hr IV Q6HR [facility] PRN Reason: Protocol Magnesium Oxide (Mag-Ox) 400 mg PO BID [facility] Last Admin: 04/14/17 22:05 Dose: 400 mg Metoprolol Succinate (Toprol Xl) 25 mg PO DAILY [facility] Pantoprazole Sodium (Protonix) 40 mg PO QDAY [facility] Last Admin: 04/14/17 15:07 Dose: 40 mg Pneumococcal Polyvalent Vaccine (Pneumovax 23) 0.5 ml IM .ONCE ONE Stop: 04/15/17 12:01 Prednisone (Deltasone) 10 mg PO QDAY [facility] Vancomycin HCl (Vancomycin Pharmacy To Dose) 1 each IV PKCONSULT [facility] PRN Reason: Protocol Exam - Vital Signs Vital signs: Vital Signs Pulse Ox 100 04/14/17 10:53 Results - Lab Results 04/18/17 06:42 04/18/17 06:42 Most recent lab results Calcium 7.4 mg/dL (8.4-10.2) L 04/15/17 07:42
[2017-04-15] MEDS: DELTASONE PO SCH (11:05)
[2017-04-15] MEDS: MAG-OX PO SCH ×2 (11:05→21:58)
[2017-04-15] MEDS: PROTONIX PO SCH (11:05)
[2017-04-15] MEDS: TOPROL XL PO SCH (11:06)
--- NOTE | 2017-04-15 11:58 | Progress Note ---
<LAURA SCHERER - Last Filed: 04/15/17 11:58> Hospitalist Physical - Constitutional Vitals: Temp Pulse Resp BP Pulse Ox 97 F L 113 H 20 100/62 100 04/15/17 08:00 04/15/17 08:00 04/15/17 08:00 04/15/17 11:06 04/15/17 09:01 General appearance: Present: no acute distress, well-nourished Results - Labs CBC & Chem 7: 04/15/17 07:42 04/15/17 07:42 Labs: Laboratory Last Values WBC 13.7 K/mm3 (4.5-11.0) H 04/15/17 07:42 RBC 2.71 M/mm3 (3.65-5.03) L 04/15/17 07:42 Hgb 7.3 gm/dl (10.1-14.3) L 04/15/17 07:42 Hct 22.2 % (30.3-42.9) L 04/15/17 07:42 MCV 82 fl (79-97) 04/15/17 07:42 MCH 27 pg (28-32) L 04/15/17 07:42 MCHC 33 % (30-34) 04/15/17 07:42 RDW 18.3 % (13.2-15.2) H 04/15/17 07:42 Plt Count 94 K/mm3 (140-440) L 04/15/17 07:42 Lymph % (Auto) 3.2 % (13.4-35.0) L 04/14/17 11:19 [place] % (Auto) 7.6 % (0.0-7.3) H 04/14/17 11:19 Eos % (Auto) 0.1 % (0.0-4.3) 04/14/17 11:19 Baso % (Auto) 0.3 % (0.0-1.8) 04/14/17 11:19 Lymph # 0.4 K/mm3 (1.2-5.4) L 04/14/17 11:19 [place] # 1.0 K/mm3 (0.0-0.8) H 04/14/17 11:19 Eos # 0.0 K/mm3 (0.0-0.4) 04/14/17 11:19 Baso # 0.0 K/mm3 (0.0-0.1) 04/14/17 11:19 Seg Neutrophils % 88.8 % (40.0-70.0) H 04/14/17 11:19 Seg Neutrophils # 12.1 K/mm3 (1.8-7.7) H 04/14/17 11:19 PT 15.9 Sec. (12.2-14.9) H 04/14/17 11:19 INR 1.21 (0.87-1.13) H 04/14/17 11:19 POC ABG pH 7.504 (7.35-7.45) H 04/15/17 00:24 POC ABG pCO2 28.4 (35-45) L 04/15/17 00:24 POC ABG pO2 240 (80-105) H 04/15/17 00:24 POC ABG HCO3 22.4 04/15/17 00:24 POC ABG Total CO2 23 04/15/17 00:24 POC ABG O2 Sat 100 04/15/17 00:24 POC ABG Base Excess -1 04/15/17 00:24 VBG pH 7.396 (7.320-7.420) 04/14/17 11:19 FiO2 50 % 04/15/17 00:24 Sodium 141 mmol/L (137-145) 04/15/17 07:42 Potassium 4.8 mmol/L (3.6-5.0) 04/15/17 07:42 Chloride 108.6 mmol/L (98-107) H 04/15/17 07:42 Carbon Dioxide 19 mmol/L (22-30) L 04/15/17 07:42 Anion Gap 18 mmol/L 04/15/17 07:42 BUN 32 mg/dL (7-17) H 04/15/17 07:42 Creatinine 2.3 mg/dL (0.7-1.2) H 04/15/17 07:42 Estimated GFR 25 ml/min 04/15/17 07:42 BUN/Creatinine Ratio 13.91 % 04/15/17 07:42 Glucose 79 mg/dL (65-100) 04/15/17 07:42 POC Glucose 96 (70-105) 04/15/17 00:06 Lactic Acid 1.70 mmol/L (0.7-2.0) 04/14/17 14:05 Calcium 7.4 mg/dL (8.4-10.2) L 04/15/17 07:42 Total Bilirubin 0.30 mg/dL (0.1-1.2) 04/14/17 11:19 AST 8 units/L (5-40) 04/14/17 11:19 ALT < 5 units/L (7-56) L 04/14/17 11:19 Alkaline Phosphatase 58 units/L (35-129) 04/14/17 11:19 Total Protein 4.8 g/dL (6.3-8.2) L 04/14/17 11:19 Albumin 2.1 g/dL (3.9-5) L 04/14/17 11:19 Albumin/Globulin Ratio 0.8 % 04/14/17 11:19 Lipase 13 units/L (13-60) 04/14/17 11:19 Urine Color Yellow (Yellow) 04/14/17 11:16 Urine Turbidity Cloudy (Clear) 04/14/17 11:16 Urine pH 5.0 (5.0-7.0) 04/14/17 11:16 Ur Specific [place] 1.014 (1.003-1.030) 04/14/17 11:16 Urine Protein 30 mg/dl mg/dL (Negative) 04/14/17 11:16 Urine Glucose (UA) Neg mg/dL (Negative) 04/14/17 11:16 Urine Ketones Tr mg/dL (Negative) 04/14/17 11:16 Urine Blood Sm (Negative) 04/14/17 11:16 Urine Nitrite Neg (Negative) 04/14/17 11:16 Urine Bilirubin Neg (Negative) 04/14/17 11:16 Urine Urobilinogen < 2.0 mg/dL (<2.0) 04/14/17 11:16 Ur Leukocyte Esterase Mod (Negative) 04/14/17 11:16 Urine WBC (Auto) 132.0 /HPF (0.0-6.0) H 04/14/17 11:16 Urine RBC (Auto) 13.0 /HPF (0.0-6.0) 04/14/17 11:16 U Epithel Cells (Auto) 1.0 /HPF (0-13.0) 04/14/17 11:16 Urine Bacteria (Auto) 1+ /HPF (Negative) 04/14/17 11:16 Urine Mucus Few /HPF 04/14/17 11:16 Blood Type B POSITIVE 04/14/17 12:57 Antibody Screen TNR 04/14/17 12:57 FAROOQ Antibody Screen Negative 04/14/17 12:57 Crossmatch See Detail 04/14/17 12:57 <TURNER CANSECO - Last Filed: 04/15/17 12:38> Hospitalist Physical - Constitutional Vitals: Temp Pulse Resp BP Pulse Ox 98.4 F 115 H 20 117/61 98 04/15/17 12:00 04/15/17 12:00 04/15/17 12:00 04/15/17 12:00 04/15/17 12:00 Results - Labs CBC & Chem 7: 04/15/17 07:42 04/15/17 07:42 Labs: Laboratory Last Values WBC 13.7 K/mm3 (4.5-11.0) H 04/15/17 07:42 RBC 2.71 M/mm3 (3.65-5.03) L 04/15/17 07:42 Hgb 7.3 gm/dl (10.1-14.3) L 04/15/17 07:42 Hct 22.2 % (30.3-42.9) L 04/15/17 07:42 MCV 82 fl (79-97) 04/15/17 07:42 MCH 27 pg (28-32) L 04/15/17 07:42 MCHC 33 % (30-34) 04/15/17 07:42 RDW 18.3 % (13.2-15.2) H 04/15/17 07:42 Plt Count 94 K/mm3 (140-440) L 04/15/17 07:42 Lymph % (Auto) 3.2 % (13.4-35.0) L 04/14/17 11:19 [place] % (Auto) 7.6 % (0.0-7.3) H 04/14/17 11:19 Eos % (Auto) 0.1 % (0.0-4.3) 04/14/17 11:19 Baso % (Auto) 0.3 % (0.0-1.8) 04/14/17 11:19 Lymph # 0.4 K/mm3 (1.2-5.4) L 04/14/17 11:19 [place] # 1.0 K/mm3 (0.0-0.8) H 04/14/17 11:19 Eos # 0.0 K/mm3 (0.0-0.4) 04/14/17 11:19 Baso # 0.0 K/mm3 (0.0-0.1) 04/14/17 11:19 Seg Neutrophils % 88.8 % (40.0-70.0) H 04/14/17 11:19 Seg Neutrophils # 12.1 K/mm3 (1.8-7.7) H 04/14/17 11:19 PT 15.9 Sec. (12.2-14.9) H 04/14/17 11:19 INR 1.21 (0.87-1.13) H 04/14/17 11:19 POC ABG pH 7.504 (7.35-7.45) H 04/15/17 00:24 POC ABG pCO2 28.4 (35-45) L 04/15/17 00:24 POC ABG pO2 240 (80-105) H 04/15/17 00:24 POC ABG HCO3 22.4 04/15/17 00:24 POC ABG Total CO2 23 04/15/17 00:24 POC ABG O2 Sat 100 04/15/17 00:24 POC ABG Base Excess -1 04/15/17 00:24 VBG pH 7.396 (7.320-7.420) 04/14/17 11:19 FiO2 50 % 04/15/17 00:24 Sodium 141 mmol/L (137-145) 04/15/17 07:42 Potassium 4.8 mmol/L (3.6-5.0) 04/15/17 07:42 Chloride 108.6 mmol/L (98-107) H 04/15/17 07:42 Carbon Dioxide 19 mmol/L (22-30) L 04/15/17 07:42 Anion Gap 18 mmol/L 04/15/17 07:42 BUN 32 mg/dL (7-17) H 04/15/17 07:42 Creatinine 2.3 mg/dL (0.7-1.2) H 04/15/17 07:42 Estimated GFR 25 ml/min 04/15/17 07:42 BUN/Creatinine Ratio 13.91 % 04/15/17 07:42 Glucose 79 mg/dL (65-100) 04/15/17 07:42 POC Glucose 96 (70-105) 04/15/17 00:06 Lactic Acid 1.70 mmol/L (0.7-2.0) 04/14/17 14:05 Calcium 7.4 mg/dL (8.4-10.2) L 04/15/17 07:42 Total Bilirubin 0.30 mg/dL (0.1-1.2) 04/14/17 11:19 AST 8 units/L (5-40) 04/14/17 11:19 ALT < 5 units/L (7-56) L 04/14/17 11:19 Alkaline Phosphatase 58 units/L (35-129) 04/14/17 11:19 Total Protein 4.8 g/dL (6.3-8.2) L 04/14/17 11:19 Albumin 2.1 g/dL (3.9-5) L 04/14/17 11:19 Albumin/Globulin Ratio 0.8 % 04/14/17 11:19 Lipase 13 units/L (13-60) 04/14/17 11:19 Urine Color Yellow (Yellow) 04/14/17 11:16 Urine Turbidity Cloudy (Clear) 04/14/17 11:16 Urine pH 5.0 (5.0-7.0) 04/14/17 11:16 Ur Specific Scheller 1.014 (1.003-1.030) 04/14/17 11:16 Urine Protein 30 mg/dl mg/dL (Negative) 04/14/17 11:16 Urine Glucose (UA) Neg mg/dL (Negative) 04/14/17 11:16 Urine Ketones Tr mg/dL (Negative) 04/14/17 11:16 Urine Blood Sm (Negative) 04/14/17 11:16 Urine Nitrite Neg (Negative) 04/14/17 11:16 Urine Bilirubin Neg (Negative) 04/14/17 11:16 Urine Urobilinogen < 2.0 mg/dL (<2.0) 04/14/17 11:16 Ur Leukocyte Esterase Mod (Negative) 04/14/17 11:16 Urine WBC (Auto) 132.0 /HPF (0.0-6.0) H 04/14/17 11:16 Urine RBC (Auto) 13.0 /HPF (0.0-6.0) 04/14/17 11:16 U Epithel Cells (Auto) 1.0 /HPF (0-13.0) 04/14/17 11:16 Urine Bacteria (Auto) 1+ /HPF (Negative) 04/14/17 11:16 Urine Mucus Few /HPF 04/14/17 11:16 Blood Type B POSITIVE 04/14/17 12:57 Antibody Screen TNR 04/14/17 12:57 FAROOQ Antibody Screen Negative 04/14/17 12:57 Crossmatch See Detail 04/14/17 12:57
[2017-04-15] MEDS ORDERED: PNEUMOVAX 23 IM ONE (12:00)
--- NOTE | 2017-04-15 14:05 | Cat Scan Report ---
CT ABDOMEN AND PELVIS WITHOUT CONTRAST: 04/15/17 CLINICAL:Abdominal pain. TECHNIQUE: Volumetric acquisition and 1.25 millimeter scan reconstructions from the lung bases through the iliac crest. The study was performed with oral contrast. FINDINGS: Abdomen:Basal atelectasis and small pleural effusions. The heart is large but there is also a large amount of epicardial fat and a small pericardial effusion. Normal liver and bile ducts status post cholecystectomy. The common bile duct measures 1.3 cm. It tapers to the ampulla. The pancreas is atrophic with a dilated duct measuring 5 mm. No pancreatic calcifications a hypodense mass of the pancreatic body measures 2.0 x 1.2 cm. No peripancreatic fluid. Normal stomach, duodenum and spleen. Normal adrenal glands. A mixed density fat containing mass of the lower pole the left kidney measures 2.5 x 1.7 x 1.9 cm. A 1.5 cm left upper pole medial hyperdense cyst measures rule seventy-three Hounsfield units in density and left upper pole and left lower pole hyperdense cysts measure less than 1 cm. The right kidney measures 9.7 cm in length and the left kidney measures 7.3 cm in length. Bilateral benign renal parenchymal calcifications and no urinary calculi. Normal aorta and inferior vena cava. Normal small bowel and colon. There appears to be a normal appendix. No ascites and no pneumoperitoneum. Pelvis: Absence of the uterus and normal vaginal cuff. Normal urinary bladder. Left ovary measures 3.0 x 2.0 cm and contains a 1 cm follicle. A possible right ovary measures 2.2 x 1.6 cm. No adnexal mass or free fluid. The rectum is normal. A 5 cm long section of sigmoid colon is narrowed and there is a large five stool both proximal and distal to the narrowing. IMPRESSION: 1. A 2 cm hypodense mass of the pancreatic body is suspicious for tumor until proven otherwise. Recommend MRI without and with contrast. 2. 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 MRI with contrast would be helpful and possibly more definitive. 3. A 5 cm long stricture of the sigmoid colon. Recommend further evaluation with either sigmoidoscopy or a barium enema. 4. Small bilateral pleural effusions and bibasal subsegmental atelectasis. 5. Small bilateral hemorrhagic renal cysts.
--- NOTE | 2017-04-15 14:41 | Consultation ---
History of Present Illness - Reason for Consult Consult date: 04/15/17 Gram Positive Bacteremia Requesting physician: LAURA SCHERER - History of Present Illness Ms. Mora is a 76-year-old woman with ESRD on HD via a right subclavian permcath. She was brought in from the [facility] with abdominal pain. A plain film xray of the abdomen showed no acute abnormality. A CT abdomen/pelvis showed a suspicious, 2-cm pancreatic mass. She also had cultures of the blood and urine. Blood cultures are positive for Gram positive cocci in clusters with pending urine culture. She is empirically prescribed Vancomycin and Zosyn. ID consultation is requested for further treatment recommendations. Past History Past Medical History: diabetes, ESRD, heart failure, hypertension, PVD, other ( DVT; hypothyroidism) Social history: other ([facility] resident) Family history: hypertension Medications and Allergies Allergies Allergy/AdvReac Type Severity Reaction Status Date / Time milk Allergy Unknown Verified 03/27/17 14:02 wheat Allergy Unknown Verified 03/27/17 14:02 Home Medications Medication Instructions Recorded Confirmed Last Taken Type Amitriptyline [Elavil] 25 mg PO QHS 03/27/17 03/27/17 Unknown History AtorvaSTATin [Lipitor] 40 mg PO QHS 03/27/17 03/27/17 Unknown History Hyoscyamine Subl [Levsin Sl 0.125 0.125 mg SL Q4HR PRN 03/27/17 03/27/17 Unknown History TAB] Magnesium Oxide [Mag-Ox] 400 mg PO BID 03/27/17 03/27/17 Unknown History Melatonin 1 mg PO QHS 03/27/17 03/27/17 Unknown History Metoprolol Succinate 25 mg PO DAILY 03/27/17 03/27/17 Unknown History Pantoprazole [Protonix TAB] 40 mg PO QDAY 03/27/17 03/27/17 Unknown History Saccharomyces Boulardii [Florastor] 250 mg PO BID 03/27/17 03/27/17 Unknown History predniSONE [Deltasone] 10 mg PO QDAY 03/27/17 03/27/17 Unknown History Active Meds: Active Medications Amitriptyline HCl (Elavil) 25 mg PO QHS [facility] Last Admin: 04/14/17 22:05 Dose: 25 mg Atorvastatin Calcium (Lipitor) 40 mg PO QHS [facility] Last Admin: 04/14/17 22:05 Dose: 40 mg Hydromorphone HCl (Dilaudid) 0.25 mg IV Q3H PRN PRN Reason: Pain, Moderate (4-6) Last Admin: 04/15/17 11:04 Dose: 0.25 mg Hyoscyamine (Levsin Sl) 0.125 mg SL Q4HR PRN PRN Reason: Spasms Piperacillin Sod/Tazobactam Sod (Zosyn/Ns 2.25 Gm/50ml) 2.25 gm in 50 mls @ 100 mls/hr IV Q6HR [facility] PRN Reason: Protocol Magnesium Oxide (Mag-Ox) 400 mg PO BID [facility] Last Admin: 04/15/17 11:05 Dose: 400 mg Metoprolol Succinate (Toprol Xl) 25 mg PO DAILY [facility] Last Admin: 04/15/17 11:06 Dose: Not Given Pantoprazole Sodium (Protonix) 40 mg PO QDAY [facility] Last Admin: 04/15/17 11:05 Dose: 40 mg Prednisone (Deltasone) 10 mg PO QDAY [facility] Last Admin: 04/15/17 11:05 Dose: 10 mg Vancomycin HCl (Vancomycin Pharmacy To Dose) 1 each IV PKCONSULT [facility] PRN Reason: Protocol Review of Systems All systems: negative Constitutional: weakness, poor appetite, no fever, no chills Cardiovascular: no chest pain, no palpitations Respiratory: no cough, no shortness of breath Gastrointestinal: abdominal pain, nausea, no vomiting, no diarrhea, no jaundice Integumentary: no rash, no pruritis Physical Examination - Constitutional Vitals: Vital Signs Temp Pulse Resp BP Pulse Ox 98.4 F 115 H 20 117/61 98 04/15/17 12:00 04/15/17 12:00 04/15/17 12:00 04/15/17 12:00 04/15/17 12:00 Temperature -Last 24 Hours Temperature 98.4 F Temperature 97 F Temperature 99.0 F Temperature 99.4 F Temperature 100.3 F Temperature 99.1 F Temperature 99.0 F Temperature 99.1 F Temperature 99.4 F Temperature 100.7 F Temperature 98.9 F Temperature 102.3 F Temperature 97.7 F General appearance: Present: no acute distress, other (appears weak, pleasant disposition) - EENT Eyes: Absent: scleral icterus, conjunctival injection - Neck Neck: Present: supple - Respiratory Respiratory: bilateral: CTA - Cardiovascular Rhythm: regular Heart Sounds: Present: S1 & S2 - Extremities Extremity abnormal: edema (trace edema bilat) - Abdominal General gastrointestinal: Present: soft, tender, non-distended, hypoactive bowel sounds - Integumentary Integumentary: Absent: jaundice, rash - Psychiatric Psychiatric: appropriate mood/affect - Neurologic Neurologic: moves all extremities - Additional findings Additional findings: right subclavian permcath without signs of infection Results - Labs CBC & Chem 7: 04/15/17 07:42 04/15/17 07:42 Labs: Abnormal lab results 04/15/17 04/15/17 04/15/17 Range/Units 00:24 07:42 07:42 WBC 13.7 H (4.5-11.0) K/mm3 RBC 2.71 L (3.65-5.03) M/mm3 Hgb 7.3 L (10.1-14.3) gm/dl Hct 22.2 L (30.3-42.9) % MCH 27 L (28-32) pg RDW 18.3 H (13.2-15.2) % Plt Count 94 L (140-440) K/mm3 POC ABG pH 7.504 H (7.35-7.45) POC ABG pCO2 28.4 L (35-45) POC ABG pO2 240 H (80-105) Chloride 108.6 H (98-107) mmol/L Carbon Dioxide 19 L (22-30) mmol/L BUN 32 H (7-17) mg/dL Creatinine 2.3 H (0.7-1.2) mg/dL Calcium 7.4 L (8.4-10.2) mg/dL Microbiology 04/14/17 12:03 Peripheral/Venous Blood Culture - Preliminary 04/14/17 11:16 Urine,Catheterized - Straight Catheter Urine Culture - Preliminary 04/14/17 11:19 Peripheral/Venous Blood Culture - Preliminary - Imaging and Cardiology Chest x-ray: report reviewed (no acute abnormality) Abdominal x-ray: report reviewed CT scan - abdomen: report reviewed CT scan - pelvis: report reviewed Assessment and Plan - Patient Problems (1) Bacteremia due to Gram-positive bacteria Current Visit: Yes Status: Acute Plan to address problem: 1. Await identification and susceptibility data of Gram positive cocci. 2. Current regimen okay pending further micro data. 3. If Staph aureus, Strep species or Enterococcal species, then will obtain echocardiogram and recommend permcath removal. Okay to keep for now.
[2017-04-15] MEDS: ELAVIL PO SCH (21:57)
[2017-04-16] MEDS: ZOSYN/NS 2.25 GM/50ML 2.25 GM/50 ML BAG IV SCH ×4 (00:59→18:54)
[2017-04-16] MEDS: DILAUDID IV PRN ×3 (01:00→18:51)
[2017-04-16] MEDS: TOPROL XL PO SCH (10:16)
[2017-04-16] MEDS: DELTASONE PO SCH (10:16)
[2017-04-16] MEDS: PROTONIX PO SCH (10:16)
[2017-04-16] MEDS: MAG-OX PO SCH ×2 (10:16→21:54)
--- NOTE | 2017-04-16 14:28 | Progress Note ---
Subjective Interval history: Patient was seen today for follow-up and multiple renal related issues She has been noted to be bacteremic and currently is status post infectious disease evaluation Patient currently does have a permacath blood cultures have been reported to be positive Vitals labs. Intake output. Medications were reviewed HEENT: Oral mucosa moist. Mild pallor Neck: Supple, no JVD, permacath site unremarkable Chest: Clear to auscultation. Very few crackles posteriorly Heart: Regular rate and rhythm, S1, S2 heard, no S3, S4 Abdomen: Soft, nontender, bowel sounds present Extremity: Trace edema. Dry skin Neurological: Alert, awake, oriented, follows commands Assessment and plan End-stage renal disease: Currently on maintenance dialysis I believe her permacath is infected and will need to be removed infectious disease to comment Continue with antibiotic after removal of permacath she can get into [facility] and after 2-3 days if cultures are negative up permacath can be safely placed if okay with infectious disease or else patient will need to be dialyzed with a Vas-Cath temporarily Anemia moderately severe patient will benefit from packed red blood cell transfusion please ordered this can be given in dialysis She will receive her hemodialysis treatment during this hospitalization Secondary hyperparathyroidism: To follow pancreatic mass. Patient will benefit from a GI evaluation Malnutrition risk: High dialysis. Patient needs high-protein diet We'll continue to follow neck recommendation from renal standpoint Objective - Vital Signs Vital signs: Vital Signs - 12hr 04/16/17 04/16/17 04/16/17 04:00 08:00 09:10 Temperature 98.7 F 98.2 F Pulse Rate [ 103 H 103 H Radial] Respiratory 18 18 Rate Blood Pressure 134/68 119/57 [Left Arm] O2 Sat by Pulse 96 97 Oximetry 04/16/17 11:58 Temperature 99.7 F H Pulse Rate [ 116 H Radial] Respiratory 20 Rate Blood Pressure 131/69 [Left Arm] O2 Sat by Pulse 98 Oximetry - Lab 04/15/17 07:42 04/15/17 07:42 Most recent lab results Calcium 7.4 mg/dL (8.4-10.2) L 04/15/17 07:42
[2017-04-16] MEDS ORDERED: NACL 0.9% 100 ML IV PRN (14:29)
--- NOTE | 2017-04-16 16:48 | Progress Note ---
Assessment and Plan - Patient Problems (1) Bacteremia due to Gram-positive bacteria Current Visit: Yes Status: Acute Plan to address problem: 1. Staph aureus bacteremia. Await final RYAN data. 2. Recommend removal of right subclavian permcath. Will repeat blood culture after catheter is removed. 3. Recommend line-free interval of 48 hours with negative repeat blood cultures prior to replacing HD access. 4. Continue Vancomycin. Will discontinue Zosyn. Subjective Date of service: 04/16/17 Principal diagnosis: Staph aureus Bacteremia Interval history: Patient remains stable, afebrile. No new complaints. Objective - Constitutional Vitals: Vital Signs Temp Pulse Resp BP Pulse Ox 99.7 F H 116 H 20 131/69 98 04/16/17 11:58 04/16/17 11:58 04/16/17 11:58 04/16/17 11:58 04/16/17 11:58 Temperature -Last 24 Hours Temperature 99.7 F Temperature 98.2 F Temperature 98.7 F Temperature 98.1 F Temperature 97.9 F General appearance: Present: no acute distress, other (pleasant) - EENT Eyes: no scleral icterus - Neck Neck: supple - Respiratory Respiratory effort: normal Respiratory: bilateral: CTA - Cardiovascular Rhythm: regular Heart Sounds: Present: S1 & S2 Extremities: No edema - Gastrointestinal General gastrointestinal: Present: soft, tender, non-distended Localized gastrointestinal: tender: RUQ - Integumentary Integumentary: clear, no jaundice - Neurologic Neurologic: moves all extremities - Psychiatric Psychiatric: appropriate mood/affect - Additional findings Additional findings: right subclavian permcath, no inflammation - Labs CBC & Chem 7: 04/15/17 07:42 04/15/17 07:42 Labs: Microbiology 04/14/17 12:03 Peripheral/Venous Blood Culture - Preliminary Staphylococcus Aureus 04/14/17 11:19 Peripheral/Venous Blood Culture - Preliminary Staphylococcus Aureus 04/14/17 11:16 Urine,Catheterized - Straight Catheter Urine Culture - Final
--- NOTE | 2017-04-16 18:11 | Progress Note ---
Assessment and Plan Assessment and plan: --Sepsis secondary to gram-positive bacteremia Antibiotics, culture sensitivities, removal of subclavian permacath, repeat cultures --Gram-positive bacteremia Continue current IV antibiotics, and the culture sensitivities ID recommend removal of right subclavian permacath and repeat blood cultures after catheter removal --Hypotension at the time of admission, her blood pressures are reasonable level Continue to monitor --Leukocytosis secondary to sepsis, trending down --End-stage renal disease on hemodialysis; nephrology following dialysis per schedule --Chronic anemia secondary to end-stage renal disease Procrit during dialysis, closely monitor H&H and transfuse as needed --Dyslipidemia; stable on lipid-lowering medications --Pancreatic mass /renal cysts on CT abdomen;, surgical evaluation , check MRI with and without contrast if needed --Diarrhea; mild improvement, supportive care, check C. difficile antigen --DVT prophylaxis; with heparin renal dose --Full CODE STATUS Plan of care discussed with the patient and her nurse History Interval history: Patient seen and evaluated medical records reviewed Patient looks chronically ill cachectic, complaints of tiredness Alert awake oriented 3 in mild distress Hospitalist Physical - Constitutional Vitals: Temp Pulse Resp BP Pulse Ox 98.3 F 63 20 108/69 98 04/16/17 15:00 04/16/17 17:45 04/16/17 15:00 04/16/17 17:45 04/16/17 11:58 General appearance: Present: mild distress, cachectic, other (appears weak, chronically ill-looking) - EENT Eyes: Present: PERRL, EOM intact - Neck Neck: Present: supple, normal ROM - Respiratory Respiratory effort: normal Respiratory: bilateral: diminished, negative: rales, rhonchi, wheezing - Cardiovascular Rhythm: regular Heart Sounds: Present: S1 & S2 - Extremities Extremities: no ischemia, pulses intact Peripheral Pulses: within normal limits - Abdominal General gastrointestinal: soft, non-tender, non-distended, normal bowel sounds - Integumentary Integumentary: Present: clear, warm - Psychiatric Psychiatric: appropriate mood/affect, cooperative - Neurologic Neurologic: CNII-XII intact, moves all extremities Results - Labs CBC & Chem 7: 04/15/17 07:42 04/15/17 07:42 Labs: Laboratory Last Values WBC 13.7 K/mm3 (4.5-11.0) H 04/15/17 07:42 RBC 2.71 M/mm3 (3.65-5.03) L 04/15/17 07:42 Hgb 7.3 gm/dl (10.1-14.3) L 04/15/17 07:42 Hct 22.2 % (30.3-42.9) L 04/15/17 07:42 MCV 82 fl (79-97) 04/15/17 07:42 MCH 27 pg (28-32) L 04/15/17 07:42 MCHC 33 % (30-34) 04/15/17 07:42 RDW 18.3 % (13.2-15.2) H 04/15/17 07:42 Plt Count 94 K/mm3 (140-440) L 04/15/17 07:42 Lymph % (Auto) 3.2 % (13.4-35.0) L 04/14/17 11:19 [place] % (Auto) 7.6 % (0.0-7.3) H 04/14/17 11:19 Eos % (Auto) 0.1 % (0.0-4.3) 04/14/17 11:19 Baso % (Auto) 0.3 % (0.0-1.8) 04/14/17 11:19 Lymph # 0.4 K/mm3 (1.2-5.4) L 04/14/17 11:19 [place] # 1.0 K/mm3 (0.0-0.8) H 04/14/17 11:19 Eos # 0.0 K/mm3 (0.0-0.4) 04/14/17 11:19 Baso # 0.0 K/mm3 (0.0-0.1) 04/14/17 11:19 Seg Neutrophils % 88.8 % (40.0-70.0) H 04/14/17 11:19 Seg Neutrophils # 12.1 K/mm3 (1.8-7.7) H 04/14/17 11:19 PT 15.9 Sec. (12.2-14.9) H 04/14/17 11:19 INR 1.21 (0.87-1.13) H 04/14/17 11:19 POC ABG pH 7.504 (7.35-7.45) H 04/15/17 00:24 POC ABG pCO2 28.4 (35-45) L 04/15/17 00:24 POC ABG pO2 240 (80-105) H 04/15/17 00:24 POC ABG HCO3 22.4 04/15/17 00:24 POC ABG Total CO2 23 04/15/17 00:24 POC ABG O2 Sat 100 04/15/17 00:24 POC ABG Base Excess -1 04/15/17 00:24 VBG pH 7.396 (7.320-7.420) 04/14/17 11:19 FiO2 50 % 04/15/17 00:24 Sodium 141 mmol/L (137-145) 04/15/17 07:42 Potassium 4.8 mmol/L (3.6-5.0) 04/15/17 07:42 Chloride 108.6 mmol/L (98-107) H 04/15/17 07:42 Carbon Dioxide 19 mmol/L (22-30) L 04/15/17 07:42 Anion Gap 18 mmol/L 04/15/17 07:42 BUN 32 mg/dL (7-17) H 04/15/17 07:42 Creatinine 2.3 mg/dL (0.7-1.2) H 04/15/17 07:42 Estimated GFR 25 ml/min 04/15/17 07:42 BUN/Creatinine Ratio 13.91 % 04/15/17 07:42 Glucose 79 mg/dL (65-100) 04/15/17 07:42 POC Glucose 96 (70-105) 04/15/17 00:06 Lactic Acid 1.70 mmol/L (0.7-2.0) 04/14/17 14:05 Calcium 7.4 mg/dL (8.4-10.2) L 04/15/17 07:42 Total Bilirubin 0.30 mg/dL (0.1-1.2) 04/14/17 11:19 AST 8 units/L (5-40) 04/14/17 11:19 ALT < 5 units/L (7-56) L 04/14/17 11:19 Alkaline Phosphatase 58 units/L (35-129) 04/14/17 11:19 Total Protein 4.8 g/dL (6.3-8.2) L 04/14/17 11:19 Albumin 2.1 g/dL (3.9-5) L 04/14/17 11:19 Albumin/Globulin Ratio 0.8 % 04/14/17 11:19 Lipase 13 units/L (13-60) 04/14/17 11:19 Urine Color Yellow (Yellow) 04/14/17 11:16 Urine Turbidity Cloudy (Clear) 04/14/17 11:16 Urine pH 5.0 (5.0-7.0) 04/14/17 11:16 Ur Specific [place] 1.014 (1.003-1.030) 04/14/17 11:16 Urine Protein 30 mg/dl mg/dL (Negative) 04/14/17 11:16 Urine Glucose (UA) Neg mg/dL (Negative) 04/14/17 11:16 Urine Ketones Tr mg/dL (Negative) 04/14/17 11:16 Urine Blood Sm (Negative) 04/14/17 11:16 Urine Nitrite Neg (Negative) 04/14/17 11:16 Urine Bilirubin Neg (Negative) 04/14/17 11:16 Urine Urobilinogen < 2.0 mg/dL (<2.0) 04/14/17 11:16 Ur Leukocyte Esterase Mod (Negative) 04/14/17 11:16 Urine WBC (Auto) 132.0 /HPF (0.0-6.0) H 04/14/17 11:16 Urine RBC (Auto) 13.0 /HPF (0.0-6.0) 04/14/17 11:16 U Epithel Cells (Auto) 1.0 /HPF (0-13.0) 04/14/17 11:16 Urine Bacteria (Auto) 1+ /HPF (Negative) 04/14/17 11:16 Urine Mucus Few /HPF 04/14/17 11:16 Random Vancomycin 22.3 ug/mL (0-40.0) 04/16/17 03:46 Blood Type B POSITIVE 04/14/17 12:57 Antibody Screen TNR 04/14/17 12:57 FAROOQ Antibody Screen Negative 04/14/17 12:57 Crossmatch See Detail 04/14/17 12:57
[2017-04-16] MEDS: ELAVIL PO SCH (21:54)
[2017-04-17] MEDS: TOPROL XL PO SCH (09:40)
[2017-04-17] MEDS: MAG-OX PO SCH ×2 (09:41→21:45)
[2017-04-17] MEDS: DELTASONE PO SCH (09:41)
[2017-04-17] MEDS: PROTONIX PO SCH (09:41)
[2017-04-17] MEDS: DILAUDID IV PRN ×2 (09:45→21:51)
--- NOTE | 2017-04-17 09:58 | Progress Note ---
Subjective Principal diagnosis: Staph aureus Bacteremia Interval history: Patient was seen today for follow-up and multiple renal related issues Denies any fevers chills Blood culture showing MRSA infection Patient currently does have a permacath blood cultures have been reported to be positive Vitals labs. Intake output. Medications were reviewed HEENT: Oral mucosa moist. Mild pallor Neck: Supple, no JVD, permacath site unremarkable, no erythema no tenderness Chest: Clear to auscultation. No crackles today Heart: Regular rate and rhythm, S1, S2 heard, no S3, S4 Abdomen: Soft, nontender, bowel sounds present Extremity: Trace edema. Dry skin Neurological: Alert, awake, oriented, follows commands Assessment and plan End-stage renal disease: Currently on maintenance dialysis, patient has had dialysis yesterday MRSA bacteremia, will need removal of the central venous catheter Will consult vascular surgery Discussed with Dr. Diaz about dialysis catheter removal agrees Monitor daily labs, blood cultures needs to be sterile for 2-3 days May need a transthoracic echocardiogram in the meantime Sepsis likely present on admission lactic acid level was elevated/likely resulting from MRSA bacteremia Continue with antibiotic Anemia status post packed red blood cell transfusion to monitor and follow Secondary hyperparathyroidism: To follow pancreatic mass. Patient will benefit from a GI evaluation, may need endoscopic ultrasound Malnutrition risk: High dialysis. Patient needs high-protein diet We'll continue to follow neck recommendation from renal standpoint Objective - Vital Signs Vital signs: Vital Signs - 12hr 04/16/17 04/17/17 04/17/17 22:05 00:00 04:00 Temperature 98.0 F 97.6 F Pulse Rate Pulse Rate [ 98 H 103 H Radial] Respiratory 20 20 Rate Respiratory Rate [Lower Abdomen] Blood Pressure Blood Pressure 110/62 132/89 [Left Arm] O2 Sat by Pulse 97 98 97 Oximetry 04/17/17 04/17/17 04/17/17 04:56 06:17 07:00 Temperature 97.9 F Pulse Rate 100 H Pulse Rate [ 104 H Radial] Respiratory 19 Rate Respiratory 20 Rate [Lower Abdomen] Blood Pressure Blood Pressure 130/71 [Left Arm] O2 Sat by Pulse 100 Oximetry 04/17/17 09:40 Temperature Pulse Rate 100 H Pulse Rate [ Radial] Respiratory Rate Respiratory Rate [Lower Abdomen] Blood Pressure 140/72 Blood Pressure [Left Arm] O2 Sat by Pulse Oximetry - Lab 04/15/17 07:42 04/15/17 07:42 Most recent lab results Calcium 7.4 mg/dL (8.4-10.2) L 04/15/17 07:42
--- NOTE | 2017-04-17 10:57 | Progress Note ---
Assessment and Plan Assessment and plan: --Sepsis secondary to gram-positive bacteremia/ MRSA Continue Antibiotics, culture sensitivities, removal of subclavian permacath, repeat cultures --MRSA bacteremia; follow cultures and sensitivities. ID following --Hypotension at the time of admission, her blood pressures are reasonable level Continue to monitor --Leukocytosis secondary to sepsis, trending down --End-stage renal disease on hemodialysis; nephrology following dialysis per schedule --Chronic anemia secondary to end-stage renal disease Procrit during dialysis, closely monitor H&H and transfuse as needed --Dyslipidemia; stable on lipid-lowering medications --Pancreatic mass /renal cysts on CT abdomen; follow surgical evaluation , check MRI if needed --Diarrhea; mild improvement, supportive care, check C. difficile antigen --DVT prophylaxis; with heparin renal dose --Full CODE STATUS Plan of care discussed with the patient and her nurse History Interval history: Patient seen and evaluated medical records reviewed Patient feels tired Alert awake oriented 3 in mild distress Hospitalist Physical - Constitutional Vitals: Temp Pulse Resp BP Pulse Ox 97.9 F 100 H 19 140/72 100 04/17/17 07:00 04/17/17 09:40 04/17/17 07:00 04/17/17 09:40 04/17/17 07:00 General appearance: Present: no acute distress, cachectic - EENT Eyes: Present: PERRL, EOM intact - Neck Neck: Present: supple, normal ROM - Respiratory Respiratory effort: normal Respiratory: bilateral: diminished, negative: rales, rhonchi, wheezing - Cardiovascular Rhythm: regular Heart Sounds: Present: S1 & S2 - Extremities Extremities: no ischemia, No edema Peripheral Pulses: within normal limits - Abdominal General gastrointestinal: soft, non-tender, non-distended, normal bowel sounds - Integumentary Integumentary: Present: clear, warm - Psychiatric Psychiatric: appropriate mood/affect, cooperative - Neurologic Neurologic: CNII-XII intact, moves all extremities Results - Labs CBC & Chem 7: 04/15/17 07:42 04/15/17 07:42 Labs: Laboratory Last Values WBC 13.7 K/mm3 (4.5-11.0) H 04/15/17 07:42 RBC 2.71 M/mm3 (3.65-5.03) L 04/15/17 07:42 Hgb 7.3 gm/dl (10.1-14.3) L 04/15/17 07:42 Hct 22.2 % (30.3-42.9) L 04/15/17 07:42 MCV 82 fl (79-97) 04/15/17 07:42 MCH 27 pg (28-32) L 04/15/17 07:42 MCHC 33 % (30-34) 04/15/17 07:42 RDW 18.3 % (13.2-15.2) H 04/15/17 07:42 Plt Count 94 K/mm3 (140-440) L 04/15/17 07:42 Lymph % (Auto) 3.2 % (13.4-35.0) L 04/14/17 11:19 [place] % (Auto) 7.6 % (0.0-7.3) H 04/14/17 11:19 Eos % (Auto) 0.1 % (0.0-4.3) 04/14/17 11:19 Baso % (Auto) 0.3 % (0.0-1.8) 04/14/17 11:19 Lymph # 0.4 K/mm3 (1.2-5.4) L 04/14/17 11:19 [place] # 1.0 K/mm3 (0.0-0.8) H 04/14/17 11:19 Eos # 0.0 K/mm3 (0.0-0.4) 04/14/17 11:19 Baso # 0.0 K/mm3 (0.0-0.1) 04/14/17 11:19 Seg Neutrophils % 88.8 % (40.0-70.0) H 04/14/17 11:19 Seg Neutrophils # 12.1 K/mm3 (1.8-7.7) H 04/14/17 11:19 PT 15.9 Sec. (12.2-14.9) H 04/14/17 11:19 INR 1.21 (0.87-1.13) H 04/14/17 11:19 POC ABG pH 7.504 (7.35-7.45) H 04/15/17 00:24 POC ABG pCO2 28.4 (35-45) L 04/15/17 00:24 POC ABG pO2 240 (80-105) H 04/15/17 00:24 POC ABG HCO3 22.4 04/15/17 00:24 POC ABG Total CO2 23 04/15/17 00:24 POC ABG O2 Sat 100 04/15/17 00:24 POC ABG Base Excess -1 04/15/17 00:24 VBG pH 7.396 (7.320-7.420) 04/14/17 11:19 FiO2 50 % 04/15/17 00:24 Sodium 141 mmol/L (137-145) 04/15/17 07:42 Potassium 4.8 mmol/L (3.6-5.0) 04/15/17 07:42 Chloride 108.6 mmol/L (98-107) H 04/15/17 07:42 Carbon Dioxide 19 mmol/L (22-30) L 04/15/17 07:42 Anion Gap 18 mmol/L 04/15/17 07:42 BUN 32 mg/dL (7-17) H 04/15/17 07:42 Creatinine 2.3 mg/dL (0.7-1.2) H 04/15/17 07:42 Estimated GFR 25 ml/min 04/15/17 07:42 BUN/Creatinine Ratio 13.91 % 04/15/17 07:42 Glucose 79 mg/dL (65-100) 04/15/17 07:42 POC Glucose 96 (70-105) 04/15/17 00:06 Lactic Acid 1.70 mmol/L (0.7-2.0) 04/14/17 14:05 Calcium 7.4 mg/dL (8.4-10.2) L 04/15/17 07:42 Total Bilirubin 0.30 mg/dL (0.1-1.2) 04/14/17 11:19 AST 8 units/L (5-40) 04/14/17 11:19 ALT < 5 units/L (7-56) L 04/14/17 11:19 Alkaline Phosphatase 58 units/L (35-129) 04/14/17 11:19 Total Protein 4.8 g/dL (6.3-8.2) L 04/14/17 11:19 Albumin 2.1 g/dL (3.9-5) L 04/14/17 11:19 Albumin/Globulin Ratio 0.8 % 04/14/17 11:19 Lipase 13 units/L (13-60) 04/14/17 11:19 Urine Color Yellow (Yellow) 04/14/17 11:16 Urine Turbidity Cloudy (Clear) 04/14/17 11:16 Urine pH 5.0 (5.0-7.0) 04/14/17 11:16 Ur Specific [place] 1.014 (1.003-1.030) 04/14/17 11:16 Urine Protein 30 mg/dl mg/dL (Negative) 04/14/17 11:16 Urine Glucose (UA) Neg mg/dL (Negative) 04/14/17 11:16 Urine Ketones Tr mg/dL (Negative) 04/14/17 11:16 Urine Blood Sm (Negative) 04/14/17 11:16 Urine Nitrite Neg (Negative) 04/14/17 11:16 Urine Bilirubin Neg (Negative) 04/14/17 11:16 Urine Urobilinogen < 2.0 mg/dL (<2.0) 04/14/17 11:16 Ur Leukocyte Esterase Mod (Negative) 04/14/17 11:16 Urine WBC (Auto) 132.0 /HPF (0.0-6.0) H 04/14/17 11:16 Urine RBC (Auto) 13.0 /HPF (0.0-6.0) 04/14/17 11:16 U Epithel Cells (Auto) 1.0 /HPF (0-13.0) 04/14/17 11:16 Urine Bacteria (Auto) 1+ /HPF (Negative) 04/14/17 11:16 Urine Mucus Few /HPF 04/14/17 11:16 Random Vancomycin 22.3 ug/mL (0-40.0) 04/16/17 03:46 Blood Type B POSITIVE 04/14/17 12:57 Antibody Screen TNR 04/14/17 12:57 FAROOQ Antibody Screen Negative 04/14/17 12:57 Crossmatch See Detail 04/14/17 12:57
[2017-04-17] MEDS ORDERED: XYLOCAINE 1% 20 mL ONE (15:16)
--- NOTE | 2017-04-17 16:01 | Event Note ---
Date: 04/17/17 The hospitalist team has requested tunneled dialysis catheter removal in this patient with documented MRSA bacteremia.
--- NOTE | 2017-04-17 16:04 | Operative Report ---
Operative Report Operative Report: Procedure: Tunneled dialysis catheter removal. Date of Procedure: 04/17/2017 History/Indication: MRSA bacteremia Physician: Delfina Vogt MD Technique/Procedural Details: Informed consent was obtained. The right chest was cleaned with ChloraPrep. 2 % lidocaine was administered subcutaneously around the catheter exit site for local anesthesia. The sutures were cut, and the catheter was pulled out in this entirety. The tip was placed in a specimen cup for culture and sensitivity. Hemostasis was achieved with manual pressure. A sterile dressing was placed. The patient tolerated the procedure well Discussion: The tunneled dialysis catheter was successfully removed in its entirety. Specimen: Catheter tip EBL: <5 cc
--- NOTE | 2017-04-17 17:59 | Progress Note ---
Assessment and Plan - Patient Problems (1) Bacteremia due to Gram-positive bacteria Current Visit: Yes Status: Acute Plan to address problem: 1. Apparently 2 strains of MRSA, one with a high Vancomycin RYAN. 2. Will change Vancomycin to Daptomycin. This can be continued after HD. 3. Ideally, patient should have an echocardiogram prior to permcath reinsertion. Will order. 4. Repeat blood culture. Subjective Date of service: 04/17/17 Principal diagnosis: Staph aureus Bacteremia Interval history: Stable. HD permcath removed today. Objective - Constitutional Vitals: Vital Signs Temp Pulse Resp BP Pulse Ox 97.8 F 101 H 20 136/68 100 04/17/17 16:00 04/17/17 16:00 04/17/17 16:00 04/17/17 16:00 04/17/17 07:00 Temperature -Last 24 Hours Temperature 97.8 F Temperature 98.4 F Temperature 97.9 F Temperature 97.6 F Temperature 98.0 F Temperature 98.1 F Temperature 97.2 F - Labs CBC & Chem 7: 04/15/17 07:42 04/15/17 07:42 Labs: Microbiology 04/14/17 11:19 Peripheral/Venous Blood Culture - Final Methicillin Resist S. Aureus 04/14/17 12:03 Peripheral/Venous Blood Culture - Final Methicillin Resist S. Aureus 04/14/17 11:16 Urine,Catheterized - Straight Catheter Urine Culture - Final
--- NOTE | 2017-04-17 20:32 | Progress Note ---
Subjective Narrative: consultation dictated , tried to call her son X2 ,no response .the mass in the pancreas , an incidental findings , may need to be evaluated when condition of Pt allows , Objective Vital Signs - 12hr 04/17/17 04/17/17 04/17/17 09:40 11:00 16:00 Temperature 98.4 F 97.8 F Pulse Rate 100 H Pulse Rate [ 105 H 101 H Apical] Pulse Rate [ 105 H 101 H Radial] Respiratory 18 20 Rate Blood Pressure 140/72 Blood Pressure 123/78 136/68 [Left Arm] 04/17/17 19:34 Temperature Pulse Rate Pulse Rate [ Apical] Pulse Rate [ Radial] Respiratory 20 Rate Blood Pressure Blood Pressure [Left Arm] - Labs 04/15/17 07:42 04/15/17 07:42
[2017-04-17] MEDS: ELAVIL PO SCH (21:45)
[2017-04-17] MEDS: CUBICIN 500 MG in NACL 0.9% 100 ML IV SCH (23:22)
[2017-04-18 07:18] LABS: Hematocrit 24.5 % (30.3-42.9); Mean Corpuscular HGB Conc 33 % (30-34); Mean Corpuscular Hemoglobin 27 pg (28-32); Mean Corpuscular Volume 82 fl (79-97); Platelet Count 118 K/mm3 (140-440); Red Blood Count 3.01 M/mm3 (3.65-5.03); Red Cell Distribution Width 19.4 % (13.2-15.2); White Blood Count 13.4 K/mm3 (4.5-11.0)
[2017-04-18 07:27] LABS: BUN/Creatinine Ratio 13.84; Calcium 8.4 mg/dL (8.4-10.2); Chloride 101.6 mmol/L (98-107); Potassium 4.6 mmol/L (3.6-5.0)
[2017-04-18 09:05] LABS: Basophils % (Manual) 0 % (0.0-1.8); Blastocytes % (Manual) 0 %; Eosinophils % (Manual) 0 % (0.0-4.3)
[2017-04-18 09:06] LABS: Acanthocytes 2+; Anisocytosis 1+; Diff Status Complete; Large Platelets Rare; Platelet Estimate Cons; Poikilocytosis 2+
[2017-04-18] MEDS: PROTONIX PO SCH (09:10)
[2017-04-18] MEDS: DELTASONE PO SCH (09:10)
[2017-04-18] MEDS: MAG-OX PO SCH ×2 (09:10→22:29)
[2017-04-18] MEDS: TOPROL XL PO SCH (09:10)
--- NOTE | 2017-04-18 09:22 | Progress Note ---
Subjective Principal diagnosis: Staph aureus Bacteremia Interval history: Patient was seen today for follow-up and multiple renal related issues Denies any fevers chills, she is currently status post Gen. surgery consultation Permacath removal Noted to have MRSA bacteremia Vitals labs. Intake output. Medications were reviewed HEENT: Oral mucosa moist. Mild pallor Neck: Supple, no JVD, permacath site unremarkable, no erythema no tenderness Chest: Clear to auscultation. No crackles today Heart: Regular rate and rhythm, S1, S2 heard, no S3, S4 Abdomen: Soft, nontender, bowel sounds present Extremity: Trace edema. Dry skin Neurological: Alert, awake, oriented, follows commands Assessment and plan End-stage renal disease: Currently on maintenance dialysis, patient has had dialysis yesterday MRSA bacteremia; currently felt to be due to line sepsis which has been removed patient is on daptomycin followed by infectious disease Obtain transthoracic echocardiogram serial blood culture was negative can consider for permacath placement Eventually she does need a fistula or graft to avoid all these complications resulting from catheter Anemia status post packed red blood cell transfusion to monitor and follow Secondary hyperparathyroidism: To follow pancreatic mass. 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 Malnutrition risk: High dialysis. Patient needs high-protein diet We'll continue to follow neck recommendation from renal standpoint Objective - Vital Signs Vital signs: Vital Signs - 12hr 04/17/17 04/17/17 04/18/17 21:51 22:21 00:00 Temperature 98.7 F Pulse Rate Pulse Rate [ 100 H Apical] Pulse Rate [ 97 H Radial] Respiratory 20 20 20 Rate Respiratory Rate [Lower Abdomen] Blood Pressure Blood Pressure 131/76 [Left Arm] O2 Sat by Pulse 98 Oximetry 04/18/17 04/18/17 04/18/17 06:29 08:00 09:10 Temperature 98.5 F Pulse Rate 100 H Pulse Rate [ Apical] Pulse Rate [ 101 H Radial] Respiratory 18 Rate Respiratory 20 Rate [Lower Abdomen] Blood Pressure 130/60 Blood Pressure 123/61 [Left Arm] O2 Sat by Pulse 100 Oximetry - Lab 04/18/17 06:42 04/18/17 06:42 Most recent lab results Calcium 8.4 mg/dL (8.4-10.2) 04/18/17 06:42
--- NOTE | 2017-04-18 10:32 | Consultation ---
I was called by Dr. Chan to see this patient. She is a 76-year-old black female. Apparently, she is a known case of renal failure, she is on hemodialysis. She has also a central line on her left side that required removal because she was found to have an infection on culture of her blood. The patient was in a [facility] and recently she was in this hospital for about 1 week and apparently she came back with pain to the mid epigastric area. She had this in the hospital. She had no fevers. She had some loose stool; however, and she was on antibiotic. As to the note, her abdomen was crampy and diffuse, her temperature was 100.5. Her white blood cell upon admission was 13.6, today it is 13.7; hemoglobin is 6.3 and yesterday it was 7. The patient's INR is 1.21. Her chemistries showed some decrease in her sodium, the potassium was 4.8. The BUN was 30 and 2 days ago it was 32. The creatinine was 2.3. Her lactic acid was 3.6 upon admission and after that it was 1.7. Alkaline phosphatase was normal. Noted that her albumin was 2.1, the lipase was 13. The patient was thus admitted for further evaluation. She is being seen by Infectious Disease, by Nephrology. She is on prednisone, on vancomycin, at one point she was on Zosyn. PHYSICAL EXAMINATION: GENERAL: Showed an elderly lady, looked much older than her stated age. She is very weak to me and frail. She looks pale as mentioned above. Her hemoglobin was 7.2. HEAD AND NECK: Negative. Neck is very thin. BREASTS: Appropriate. CHEST: Showed some decreased breath sounds bilaterally, more on the right side. ABDOMEN: Severely distended with severe tenderness in the mid epigastrium. EXTREMITIES: Showed trace edema. IMPRESSION AND PLAN: Abdominal pain, the etiology of which is unknown, may be uremic peritonitis. There is no evidence of perforation on the CAT scan, I reviewed the CAT scan with our radiologist. The only abnormality that this patient has is some mass in the mid body of the pancreas. It is about 12.5 cm but did not show any evidence of edema at the area. I tried to call her son on two occasions and Dr. Lomax did the same as I was told by our nursing staff. Returned my call, there is a click and the phone was close. I did indicate that to the nursing staff and they told me they had the same with Dr. Lomax. At the present time, surgically speaking nothing needs to be done. The mass in the pancreas is not the reason for her pain. I have got to discuss the case with the family to see if she is a candidate for a DNR or not. I want to do that for the attending physician. JOB# [id number] ANGEL LUIS/MALINI [place]
--- NOTE | 2017-04-18 11:28 | Event Note ---
Date: 04/18/17 ESRD status post PC removal for MRSA bacteremia. Discussed with Dr. Lomax. Will tentatively plan for PermCath placement on Saturday.
--- NOTE | 2017-04-18 16:15 | Progress Note ---
Subjective Narrative: sleepy MRSA ? central line out , Cs taken will see PRN Pt asleep soundly . abd soft . Objective Vital Signs - 12hr 04/18/17 04/18/17 04/18/17 06:29 08:00 09:10 Temperature 98.5 F Pulse Rate 100 H Pulse Rate [ 101 H Radial] Respiratory 18 Rate Respiratory 20 Rate [Lower Abdomen] Blood Pressure 130/60 Blood Pressure 123/61 [Left Arm] O2 Sat by Pulse 100 Oximetry - Labs 04/18/17 06:42 04/18/17 06:42 Diabetes panel 04/18/17 Range/Units 06:42 Sodium 139 (137-145) mmol/L Potassium 4.6 (3.6-5.0) mmol/L Chloride 101.6 (98-107) mmol/L Carbon Dioxide 24 (22-30) mmol/L BUN 18 H (7-17) mg/dL Creatinine 1.3 H (0.7-1.2) mg/dL Glucose 50 L (65-100) mg/dL Calcium 8.4 (8.4-10.2) mg/dL Calcium panel 04/18/17 Range/Units 06:42 Calcium 8.4 (8.4-10.2) mg/dL Pituitary panel 04/18/17 Range/Units 06:42 Sodium 139 (137-145) mmol/L Potassium 4.6 (3.6-5.0) mmol/L Chloride 101.6 (98-107) mmol/L Carbon Dioxide 24 (22-30) mmol/L BUN 18 H (7-17) mg/dL Creatinine 1.3 H (0.7-1.2) mg/dL Glucose 50 L (65-100) mg/dL Calcium 8.4 (8.4-10.2) mg/dL Adrenal panel 04/18/17 Range/Units 06:42 Sodium 139 (137-145) mmol/L Potassium 4.6 (3.6-5.0) mmol/L Chloride 101.6 (98-107) mmol/L Carbon Dioxide 24 (22-30) mmol/L BUN 18 H (7-17) mg/dL Creatinine 1.3 H (0.7-1.2) mg/dL Glucose 50 L (65-100) mg/dL Calcium 8.4 (8.4-10.2) mg/dL
--- NOTE | 2017-04-18 18:06 | Progress Note ---
Assessment and Plan - Patient Problems (1) Bacteremia due to Gram-positive bacteria Current Visit: Yes Status: Acute Plan to address problem: 1. Presently on Daptomycin. 2. No valvular vegetations noted on echocardiogram. 3. Anticipate course through May 01, 2017. 4. Will check CPK. 5. Okay to replace permcath if blood cultures are still negative at 48 hours. Subjective Date of service: 04/18/17 Principal diagnosis: Staph aureus Bacteremia Interval history: No new clinical issues. Permcath removed. Objective - Constitutional Vitals: Vital Signs Temp Pulse Resp BP Pulse Ox 98.5 F 100 H 18 130/60 100 04/18/17 08:00 04/18/17 09:10 04/18/17 08:00 04/18/17 09:10 04/18/17 08:00 Temperature -Last 24 Hours Temperature 98.5 F Temperature 98.7 F General appearance: Present: no acute distress - EENT Eyes: no conjunctival injection - Respiratory Respiratory effort: normal Respiratory: bilateral: CTA - Cardiovascular Rhythm: regular Heart Sounds: Present: S1 & S2 Extremities: No edema - Gastrointestinal General gastrointestinal: Present: soft, tender, non-distended - Integumentary Integumentary: clear, no rash - Neurologic Neurologic: moves all extremities - Psychiatric Psychiatric: appropriate mood/affect - Labs CBC & Chem 7: 04/18/17 06:42 04/18/17 06:42 Labs: Abnormal lab results 04/18/17 04/18/17 Range/Units 06:42 06:42 WBC 13.4 H (4.5-11.0) K/mm3 RBC 3.01 L (3.65-5.03) M/mm3 Hgb 8.0 L (10.1-14.3) gm/dl Hct 24.5 L (30.3-42.9) % MCH 27 L (28-32) pg RDW 19.4 H (13.2-15.2) % Plt Count 118 L (140-440) K/mm3 Seg Neuts % (Manual) 91.0 H (40.0-70.0) % Lymphocytes % (Manual) 2.0 L (13.4-35.0) % Seg Neutrophils # Man 12.2 H (1.8-7.7) K/mm3 Lymphocytes # (Manual) 0.3 L (1.2-5.4) K/mm3 BUN 18 H (7-17) mg/dL Creatinine 1.3 H (0.7-1.2) mg/dL Glucose 50 L (65-100) mg/dL Microbiology 04/17/17 15:31 Vascular Cath Catheter Tip Culture - Preliminary 04/17/17 18:57 Peripheral/Venous Blood Culture - Preliminary Culture in Progress 04/17/17 18:26 Peripheral/Venous Blood Culture - Preliminary Culture in Progress 04/14/17 11:19 Peripheral/Venous Blood Culture - Final Methicillin Resist S. Aureus 04/14/17 12:03 Peripheral/Venous Blood Culture - Final Methicillin Resist S. Aureus 04/14/17 11:16 Urine,Catheterized - Straight Catheter Urine Culture - Final - Imaging and cardiology Other: report reviewed (ECHOCARDIOGRAM - no vegetations noted, EF 40-45%)
--- NOTE | 2017-04-18 18:13 | Progress Note ---
Assessment and Plan Assessment and plan: Assessment and plan: --Sepsis secondary to MRSA Her dialysis catheter removed, ID change antibiotics to daptomycin Echocardiogram negative for valvular vegetations --Hypotension at the time of admission, her blood pressures are reasonable level Continue to monitor --Leukocytosis secondary to sepsis, trending down --End-stage renal disease on hemodialysis; nephrology following dialysis per schedule --Chronic anemia secondary to end-stage renal disease Procrit during dialysis, closely monitor H&H and transfuse as needed --Dyslipidemia; stable on lipid-lowering medications --Pancreatic mass Surgery evaluation noted ,conservative management at this point in view of MRSA bacteremia --Diarrhea; mild improvement, supportive care, check C. difficile antigen --DVT prophylaxis; with heparin renal dose --Full CODE STATUS Plan of care discussed with the patient and her nurse History Interval history: Since seen and evaluated medical records reviewed Dialysis catheters removed yesterday secondary to MRSA Infectious diseases that have changed antibiotics to daptomycin Patient feels better no new complaints Echocardiogram. No valvular vegetations, patient is on daptomycin, and date 05/2017 patient ID Hospitalist Physical - Constitutional Vitals: Temp Pulse Resp BP Pulse Ox 98.5 F 100 H 18 130/60 100 04/18/17 08:00 04/18/17 09:10 04/18/17 08:00 04/18/17 09:10 04/18/17 08:00 General appearance: Present: no acute distress, cachectic - EENT Eyes: Present: PERRL, EOM intact - Neck Neck: Present: supple, normal ROM - Respiratory Respiratory effort: normal Respiratory: bilateral: diminished, negative: rales, rhonchi, wheezing - Cardiovascular Rhythm: regular Heart Sounds: Present: S1 & S2 - Extremities Extremities: no ischemia, No edema Peripheral Pulses: within normal limits - Abdominal General gastrointestinal: soft, non-tender, non-distended, normal bowel sounds - Integumentary Integumentary: Present: clear, warm - Psychiatric Psychiatric: appropriate mood/affect, cooperative - Neurologic Neurologic: CNII-XII intact, moves all extremities Results - Labs CBC & Chem 7: 04/18/17 06:42 04/18/17 06:42 Labs: Laboratory Last Values WBC 13.4 K/mm3 (4.5-11.0) H 04/18/17 06:42 RBC 3.01 M/mm3 (3.65-5.03) L 04/18/17 06:42 Hgb 8.0 gm/dl (10.1-14.3) L 04/18/17 06:42 Hct 24.5 % (30.3-42.9) L 04/18/17 06:42 MCV 82 fl (79-97) 04/18/17 06:42 MCH 27 pg (28-32) L 04/18/17 06:42 MCHC 33 % (30-34) 04/18/17 06:42 RDW 19.4 % (13.2-15.2) H 04/18/17 06:42 Plt Count 118 K/mm3 (140-440) L 04/18/17 06:42 Lymph % (Auto) 3.2 % (13.4-35.0) L 04/14/17 11:19 [place] % (Auto) 7.6 % (0.0-7.3) H 04/14/17 11:19 Eos % (Auto) 0.1 % (0.0-4.3) 04/14/17 11:19 Baso % (Auto) 0.3 % (0.0-1.8) 04/14/17 11:19 Lymph # 0.4 K/mm3 (1.2-5.4) L 04/14/17 11:19 [place] # 1.0 K/mm3 (0.0-0.8) H 04/14/17 11:19 Eos # 0.0 K/mm3 (0.0-0.4) 04/14/17 11:19 Baso # 0.0 K/mm3 (0.0-0.1) 04/14/17 11:19 Add Manual Diff Complete 04/18/17 06:42 Total Counted 100 04/18/17 06:42 Seg Neutrophils % 88.8 % (40.0-70.0) H 04/14/17 11:19 Seg Neuts % (Manual) 91.0 % (40.0-70.0) H 04/18/17 06:42 Band Neutrophils % 1.0 % 04/18/17 06:42 Lymphocytes % (Manual) 2.0 % (13.4-35.0) L 04/18/17 06:42 Reactive Lymphs % (Man) 0 % 04/18/17 06:42 Monocytes % (Manual) 5.0 % (0.0-7.3) 04/18/17 06:42 Eosinophils % (Manual) 0 % (0.0-4.3) 04/18/17 06:42 Basophils % (Manual) 0 % (0.0-1.8) 04/18/17 06:42 Metamyelocytes % 1.0 % 04/18/17 06:42 Myelocytes % 0 % 04/18/17 06:42 Promyelocytes % 0 % 04/18/17 06:42 Blast Cells % 0 % 04/18/17 06:42 Nucleated RBC % Not Reportable 04/18/17 06:42 Seg Neutrophils # 12.1 K/mm3 (1.8-7.7) H 04/14/17 11:19 Seg Neutrophils # Man 12.2 K/mm3 (1.8-7.7) H 04/18/17 06:42 Band Neutrophils # 0.1 K/mm3 04/18/17 06:42 Lymphocytes # (Manual) 0.3 K/mm3 (1.2-5.4) L 04/18/17 06:42 Abs React Lymphs (Man) 0.0 K/mm3 04/18/17 06:42 Monocytes # (Manual) 0.7 K/mm3 (0.0-0.8) 04/18/17 06:42 Eosinophils # (Manual) 0.0 K/mm3 (0.0-0.4) 04/18/17 06:42 Basophils # (Manual) 0.0 K/mm3 (0.0-0.1) 04/18/17 06:42 Metamyelocytes # 0.1 K/mm3 04/18/17 06:42 Myelocytes # 0.0 K/mm3 04/18/17 06:42 Promyelocytes # 0.0 K/mm3 04/18/17 06:42 Blast Cells # 0.0 K/mm3 04/18/17 06:42 WBC Morphology Not Reportable 04/18/17 06:42 Hypersegmented Neuts Not Reportable 04/18/17 06:42 Hyposegmented Neuts Not Reportable 04/18/17 06:42 Hypogranular Neuts Not Reportable 04/18/17 06:42 Smudge Cells Not Reportable 04/18/17 06:42 Toxic Granulation Not Reportable 04/18/17 06:42 Toxic Vacuolation Not Reportable 04/18/17 06:42 Dohle Bodies Not Reportable 04/18/17 06:42 Pelger-Huet Anomaly Not Reportable 04/18/17 06:42 Jyoti Rods Not Reportable 04/18/17 06:42 Platelet Estimate Cons 04/18/17 06:42 Clumped Platelets Not Reportable 04/18/17 06:42 Plt Clumps, EDTA Not Reportable 04/18/17 06:42 Large Platelets Rare 04/18/17 06:42 Giant Platelets Not Reportable 04/18/17 06:42 Platelet Satelliting Not Reportable 04/18/17 06:42 Plt Morphology Comment Not Reportable 04/18/17 06:42 RBC Morphology Not Reportable 04/18/17 06:42 Dimorphic RBCs Not Reportable 04/18/17 06:42 Polychromasia Not Reportable 04/18/17 06:42 Hypochromasia Not Reportable 04/18/17 06:42 Poikilocytosis 2+ 04/18/17 06:42 Anisocytosis 1+ 04/18/17 06:42 Microcytosis Not Reportable 04/18/17 06:42 Macrocytosis Not Reportable 04/18/17 06:42 Spherocytes Not Reportable 04/18/17 06:42 Pappenheimer Bodies Not Reportable 04/18/17 06:42 Sickle Cells Not Reportable 04/18/17 06:42 Target Cells Not Reportable 04/18/17 06:42 Tear Drop Cells Not Reportable 04/18/17 06:42 Ovalocytes Not Reportable 04/18/17 06:42 Helmet Cells Not Reportable 04/18/17 06:42 [place] Bodies Not Reportable 04/18/17 06:42 [place] Rings Not Reportable 04/18/17 06:42 [place] Cells Not Reportable 04/18/17 06:42 Bite Cells Not Reportable 04/18/17 06:42 Crenated Cell Not Reportable 04/18/17 06:42 Elliptocytes Not Reportable 04/18/17 06:42 Acanthocytes (Spur) 2+ 04/18/17 06:42 Rouleaux Not Reportable 04/18/17 06:42 Hemoglobin C Crystals Not Reportable 04/18/17 06:42 Schistocytes Not Reportable 04/18/17 06:42 Malaria parasites Not Reportable 04/18/17 06:42 [place] Bodies Not Reportable 04/18/17 06:42 Hem Pathologist Commnt No 04/18/17 06:42 PT 15.9 Sec. (12.2-14.9) H 04/14/17 11:19 INR 1.21 (0.87-1.13) H 04/14/17 11:19 POC ABG pH 7.504 (7.35-7.45) H 04/15/17 00:24 POC ABG pCO2 28.4 (35-45) L 04/15/17 00:24 POC ABG pO2 240 (80-105) H 04/15/17 00:24 POC ABG HCO3 22.4 04/15/17 00:24 POC ABG Total CO2 23 04/15/17 00:24 POC ABG O2 Sat 100 04/15/17 00:24 POC ABG Base Excess -1 04/15/17 00:24 VBG pH 7.396 (7.320-7.420) 04/14/17 11:19 FiO2 50 % 04/15/17 00:24 Sodium 139 mmol/L (137-145) 04/18/17 06:42 Potassium 4.6 mmol/L (3.6-5.0) 04/18/17 06:42 Chloride 101.6 mmol/L (98-107) 04/18/17 06:42 Carbon Dioxide 24 mmol/L (22-30) 04/18/17 06:42 Anion Gap 18 mmol/L 04/18/17 06:42 BUN 18 mg/dL (7-17) H 04/18/17 06:42 Creatinine 1.3 mg/dL (0.7-1.2) H 04/18/17 06:42 Estimated GFR 48 ml/min 04/18/17 06:42 BUN/Creatinine Ratio 13.84 % 04/18/17 06:42 Glucose 50 mg/dL (65-100) L 04/18/17 06:42 POC Glucose 96 (70-105) 04/15/17 00:06 Lactic Acid 1.70 mmol/L (0.7-2.0) 04/14/17 14:05 Calcium 8.4 mg/dL (8.4-10.2) 04/18/17 06:42 Total Bilirubin 0.30 mg/dL (0.1-1.2) 04/14/17 11:19 AST 8 units/L (5-40) 04/14/17 11:19 ALT < 5 units/L (7-56) L 04/14/17 11:19 Alkaline Phosphatase 58 units/L (35-129) 04/14/17 11:19 Total Protein 4.8 g/dL (6.3-8.2) L 04/14/17 11:19 Albumin 2.1 g/dL (3.9-5) L 04/14/17 11:19 Albumin/Globulin Ratio 0.8 % 04/14/17 11:19 Lipase 13 units/L (13-60) 04/14/17 11:19 Urine Color Yellow (Yellow) 04/14/17 11:16 Urine Turbidity Cloudy (Clear) 04/14/17 11:16 Urine pH 5.0 (5.0-7.0) 04/14/17 11:16 Ur Specific [place] 1.014 (1.003-1.030) 04/14/17 11:16 Urine Protein 30 mg/dl mg/dL (Negative) 04/14/17 11:16 Urine Glucose (UA) Neg mg/dL (Negative) 04/14/17 11:16 Urine Ketones Tr mg/dL (Negative) 04/14/17 11:16 Urine Blood Sm (Negative) 04/14/17 11:16 Urine Nitrite Neg (Negative) 04/14/17 11:16 Urine Bilirubin Neg (Negative) 04/14/17 11:16 Urine Urobilinogen < 2.0 mg/dL (<2.0) 04/14/17 11:16 Ur Leukocyte Esterase Mod (Negative) 04/14/17 11:16 Urine WBC (Auto) 132.0 /HPF (0.0-6.0) H 04/14/17 11:16 Urine RBC (Auto) 13.0 /HPF (0.0-6.0) 04/14/17 11:16 U Epithel Cells (Auto) 1.0 /HPF (0-13.0) 04/14/17 11:16 Urine Bacteria (Auto) 1+ /HPF (Negative) 04/14/17 11:16 Urine Mucus Few /HPF 04/14/17 11:16 Random Vancomycin 11.6 ug/mL (0-40.0) 04/18/17 06:42 Blood Type B POSITIVE 04/14/17 12:57 Antibody Screen TNR 04/14/17 12:57 FAROOQ Antibody Screen Negative 04/14/17 12:57 Crossmatch See Detail 04/14/17 12:57
[2017-04-18] MEDS: ELAVIL PO SCH (22:30)
[2017-04-19] MEDS: DELTASONE PO SCH (09:08)
[2017-04-19] MEDS: PROTONIX PO SCH (09:08)
[2017-04-19] MEDS: MAG-OX PO SCH ×2 (09:08→22:57)
[2017-04-19] MEDS: DILAUDID IV PRN ×2 (09:08→18:25)
[2017-04-19] MEDS: TOPROL XL PO SCH (09:08)
--- NOTE | 2017-04-19 10:16 | Progress Note ---
Subjective Principal diagnosis: Staph aureus Bacteremia Interval history: Patient was seen today for follow-up and multiple renal related issues Denies any fevers chills, she is currently status post Gen. surgery consultation Permacath removal Noted to have MRSA bacteremia Vitals labs. Intake output. Medications were reviewed HEENT: Oral mucosa moist. Mild pallor Neck: Supple, no JVD, permacath site unremarkable, no erythema no tenderness Chest: Clear to auscultation. No crackles today Heart: Regular rate and rhythm, S1, S2 heard, no S3, S4 Abdomen: Soft, nontender, bowel sounds present Extremity: Trace edema. Dry skin Neurological: Alert, awake, oriented, follows commands Assessment and plan; End-stage renal disease: Currently on maintenance dialysis cvc next week possibly unless emergent can get vas cath labs for now follow up c/s neg Hb 8 K 4.6 MRSA bacteremia; currently felt to be due to line sepsis which has been removed patient is on daptomycin followed by infectious disease TTE no vegetations Eventually she does need a fistula or graft to avoid all these complications resulting from catheter Anemia status post packed red blood cell transfusion to monitor and follow Secondary hyperparathyroidism: To follow pancreatic mass. 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 Malnutrition risk: High dialysis. Patient needs high-protein diet We'll continue to follow neck recommendation from renal standpoint Objective - Vital Signs Vital signs: Vital Signs - 12hr 04/19/17 04/19/17 04/19/17 00:00 00:41 08:20 Temperature 98.8 F Pulse Rate Pulse Rate [ 86 Apical] Pulse Rate [ 74 Left Radial] Pulse Rate [ 86 Radial] Respiratory 18 14 Rate Blood Pressure Blood Pressure 122/68 [Left Arm] O2 Sat by Pulse 96 Oximetry 04/19/17 09:08 Temperature Pulse Rate 88 Pulse Rate [ Apical] Pulse Rate [ Left Radial] Pulse Rate [ Radial] Respiratory Rate Blood Pressure 135/74 Blood Pressure [Left Arm] O2 Sat by Pulse Oximetry - Lab 04/18/17 06:42 04/18/17 06:42 Most recent lab results Calcium 8.4 mg/dL (8.4-10.2) 04/18/17 06:42
--- NOTE | 2017-04-19 12:00 | Progress Note ---
Assessment and Plan Assessment and plan: --Sepsis secondary to MRSA Her dialysis catheter removed, ID change antibiotics to daptomycin Echocardiogram negative for valvular vegetations New dialysis catheter placement per vascular --Hypotension at the time of admission, her blood pressures are reasonable level Continue to monitor --Leukocytosis secondary to sepsis, trending down --End-stage renal disease on hemodialysis; nephrology following dialysis per schedule --Chronic anemia secondary to end-stage renal disease Procrit during dialysis, closely monitor H&H and transfuse as needed --Dyslipidemia; stable on lipid-lowering medications --Pancreatic mass Surgery evaluation noted ,conservative management at this point in view of MRSA bacteremia Consider GI evaluation if needed --Diarrhea; mild improvement, supportive care, check C. difficile antigen --DVT prophylaxis; with heparin renal dose --Full CODE STATUS Consults and recommendations noted and appreciated Plan of care discussed with the patient and her nurse History Interval history: Patient seen and examined, medical records reviewed Patient feels better no new complaints Vital Signs reviewed Hospitalist Physical - Constitutional Vitals: Temp Pulse Resp BP Pulse Ox 98.8 F 88 14 135/74 96 04/19/17 00:00 04/19/17 09:08 04/19/17 08:20 04/19/17 09:08 04/19/17 00:41 General appearance: Present: no acute distress, well-nourished, cachectic - EENT Eyes: Present: PERRL, EOM intact - Neck Neck: Present: supple, normal ROM - Respiratory Respiratory effort: normal Respiratory: bilateral: diminished, negative: rales, rhonchi, wheezing - Cardiovascular Rhythm: regular Heart Sounds: Present: S1 & S2 - Extremities Extremities: no ischemia, No edema - Abdominal General gastrointestinal: soft, non-tender, non-distended, normal bowel sounds - Integumentary Integumentary: Present: clear, warm - Psychiatric Psychiatric: appropriate mood/affect, cooperative - Neurologic Neurologic: CNII-XII intact, moves all extremities Results - Labs CBC & Chem 7: 04/18/17 06:42 04/18/17 06:42 Labs: Laboratory Last Values WBC 13.4 K/mm3 (4.5-11.0) H 04/18/17 06:42 RBC 3.01 M/mm3 (3.65-5.03) L 04/18/17 06:42 Hgb 8.0 gm/dl (10.1-14.3) L 04/18/17 06:42 Hct 24.5 % (30.3-42.9) L 04/18/17 06:42 MCV 82 fl (79-97) 04/18/17 06:42 MCH 27 pg (28-32) L 04/18/17 06:42 MCHC 33 % (30-34) 04/18/17 06:42 RDW 19.4 % (13.2-15.2) H 04/18/17 06:42 Plt Count 118 K/mm3 (140-440) L 04/18/17 06:42 Lymph % (Auto) 3.2 % (13.4-35.0) L 04/14/17 11:19 [place] % (Auto) 7.6 % (0.0-7.3) H 04/14/17 11:19 Eos % (Auto) 0.1 % (0.0-4.3) 04/14/17 11:19 Baso % (Auto) 0.3 % (0.0-1.8) 04/14/17 11:19 Lymph # 0.4 K/mm3 (1.2-5.4) L 04/14/17 11:19 [place] # 1.0 K/mm3 (0.0-0.8) H 04/14/17 11:19 Eos # 0.0 K/mm3 (0.0-0.4) 04/14/17 11:19 Baso # 0.0 K/mm3 (0.0-0.1) 04/14/17 11:19 Add Manual Diff Complete 04/18/17 06:42 Total Counted 100 04/18/17 06:42 Seg Neutrophils % 88.8 % (40.0-70.0) H 04/14/17 11:19 Seg Neuts % (Manual) 91.0 % (40.0-70.0) H 04/18/17 06:42 Band Neutrophils % 1.0 % 04/18/17 06:42 Lymphocytes % (Manual) 2.0 % (13.4-35.0) L 04/18/17 06:42 Reactive Lymphs % (Man) 0 % 04/18/17 06:42 Monocytes % (Manual) 5.0 % (0.0-7.3) 04/18/17 06:42 Eosinophils % (Manual) 0 % (0.0-4.3) 04/18/17 06:42 Basophils % (Manual) 0 % (0.0-1.8) 04/18/17 06:42 Metamyelocytes % 1.0 % 04/18/17 06:42 Myelocytes % 0 % 04/18/17 06:42 Promyelocytes % 0 % 04/18/17 06:42 Blast Cells % 0 % 04/18/17 06:42 Nucleated RBC % Not Reportable 04/18/17 06:42 Seg Neutrophils # 12.1 K/mm3 (1.8-7.7) H 04/14/17 11:19 Seg Neutrophils # Man 12.2 K/mm3 (1.8-7.7) H 04/18/17 06:42 Band Neutrophils # 0.1 K/mm3 04/18/17 06:42 Lymphocytes # (Manual) 0.3 K/mm3 (1.2-5.4) L 04/18/17 06:42 Abs React Lymphs (Man) 0.0 K/mm3 04/18/17 06:42 Monocytes # (Manual) 0.7 K/mm3 (0.0-0.8) 04/18/17 06:42 Eosinophils # (Manual) 0.0 K/mm3 (0.0-0.4) 04/18/17 06:42 Basophils # (Manual) 0.0 K/mm3 (0.0-0.1) 04/18/17 06:42 Metamyelocytes # 0.1 K/mm3 04/18/17 06:42 Myelocytes # 0.0 K/mm3 04/18/17 06:42 Promyelocytes # 0.0 K/mm3 04/18/17 06:42 Blast Cells # 0.0 K/mm3 04/18/17 06:42 WBC Morphology Not Reportable 04/18/17 06:42 Hypersegmented Neuts Not Reportable 04/18/17 06:42 Hyposegmented Neuts Not Reportable 04/18/17 06:42 Hypogranular Neuts Not Reportable 04/18/17 06:42 Smudge Cells Not Reportable 04/18/17 06:42 Toxic Granulation Not Reportable 04/18/17 06:42 Toxic Vacuolation Not Reportable 04/18/17 06:42 Dohle Bodies Not Reportable 04/18/17 06:42 [place] Anomaly Not Reportable 04/18/17 06:42 Jyoti Rods Not Reportable 04/18/17 06:42 Platelet Estimate Cons 04/18/17 06:42 Clumped Platelets Not Reportable 04/18/17 06:42 Plt Clumps, EDTA Not Reportable 04/18/17 06:42 Large Platelets Rare 04/18/17 06:42 Giant Platelets Not Reportable 04/18/17 06:42 Platelet Satelliting Not Reportable 04/18/17 06:42 Plt Morphology Comment Not Reportable 04/18/17 06:42 RBC Morphology Not Reportable 04/18/17 06:42 Dimorphic RBCs Not Reportable 04/18/17 06:42 Polychromasia Not Reportable 04/18/17 06:42 Hypochromasia Not Reportable 04/18/17 06:42 Poikilocytosis 2+ 04/18/17 06:42 Anisocytosis 1+ 04/18/17 06:42 Microcytosis Not Reportable 04/18/17 06:42 Macrocytosis Not Reportable 04/18/17 06:42 Spherocytes Not Reportable 04/18/17 06:42 Pappenheimer Bodies Not Reportable 04/18/17 06:42 Sickle Cells Not Reportable 04/18/17 06:42 Target Cells Not Reportable 04/18/17 06:42 Tear Drop Cells Not Reportable 04/18/17 06:42 Ovalocytes Not Reportable 04/18/17 06:42 Helmet Cells Not Reportable 04/18/17 06:42 [place] Bodies Not Reportable 04/18/17 06:42 [place] Rings Not Reportable 04/18/17 06:42 [place] Cells Not Reportable 04/18/17 06:42 Bite Cells Not Reportable 04/18/17 06:42 Crenated Cell Not Reportable 04/18/17 06:42 Elliptocytes Not Reportable 04/18/17 06:42 Acanthocytes (Spur) 2+ 04/18/17 06:42 Rouleaux Not Reportable 04/18/17 06:42 Hemoglobin C Crystals Not Reportable 04/18/17 06:42 Schistocytes Not Reportable 04/18/17 06:42 Malaria parasites Not Reportable 04/18/17 06:42 [place] Bodies Not Reportable 04/18/17 06:42 Hem Pathologist Commnt No 04/18/17 06:42 PT 15.9 Sec. (12.2-14.9) H 04/14/17 11:19 INR 1.21 (0.87-1.13) H 04/14/17 11:19 POC ABG pH 7.504 (7.35-7.45) H 04/15/17 00:24 POC ABG pCO2 28.4 (35-45) L 04/15/17 00:24 POC ABG pO2 240 (80-105) H 04/15/17 00:24 POC ABG HCO3 22.4 04/15/17 00:24 POC ABG Total CO2 23 04/15/17 00:24 POC ABG O2 Sat 100 04/15/17 00:24 POC ABG Base Excess -1 04/15/17 00:24 VBG pH 7.396 (7.320-7.420) 04/14/17 11:19 FiO2 50 % 04/15/17 00:24 Sodium 139 mmol/L (137-145) 04/18/17 06:42 Potassium 4.6 mmol/L (3.6-5.0) 04/18/17 06:42 Chloride 101.6 mmol/L (98-107) 04/18/17 06:42 Carbon Dioxide 24 mmol/L (22-30) 04/18/17 06:42 Anion Gap 18 mmol/L 04/18/17 06:42 BUN 18 mg/dL (7-17) H 04/18/17 06:42 Creatinine 1.3 mg/dL (0.7-1.2) H 04/18/17 06:42 Estimated GFR 48 ml/min 04/18/17 06:42 BUN/Creatinine Ratio 13.84 % 04/18/17 06:42 Glucose 50 mg/dL (65-100) L 04/18/17 06:42 POC Glucose 96 (70-105) 04/15/17 00:06 Lactic Acid 1.70 mmol/L (0.7-2.0) 04/14/17 14:05 Calcium 8.4 mg/dL (8.4-10.2) 04/18/17 06:42 Total Bilirubin 0.30 mg/dL (0.1-1.2) 04/14/17 11:19 AST 8 units/L (5-40) 04/14/17 11:19 ALT < 5 units/L (7-56) L 04/14/17 11:19 Alkaline Phosphatase 58 units/L (35-129) 04/14/17 11:19 Total Creatine Kinase 14 units/L (30-135) L 04/19/17 04:57 Total Protein 4.8 g/dL (6.3-8.2) L 04/14/17 11:19 Albumin 2.1 g/dL (3.9-5) L 04/14/17 11:19 Albumin/Globulin Ratio 0.8 % 04/14/17 11:19 Lipase 13 units/L (13-60) 04/14/17 11:19 Urine Color Yellow (Yellow) 04/14/17 11:16 Urine Turbidity Cloudy (Clear) 04/14/17 11:16 Urine pH 5.0 (5.0-7.0) 04/14/17 11:16 Ur Specific [place] 1.014 (1.003-1.030) 04/14/17 11:16 Urine Protein 30 mg/dl mg/dL (Negative) 04/14/17 11:16 Urine Glucose (UA) Neg mg/dL (Negative) 04/14/17 11:16 Urine Ketones Tr mg/dL (Negative) 04/14/17 11:16 Urine Blood Sm (Negative) 04/14/17 11:16 Urine Nitrite Neg (Negative) 04/14/17 11:16 Urine Bilirubin Neg (Negative) 04/14/17 11:16 Urine Urobilinogen < 2.0 mg/dL (<2.0) 04/14/17 11:16 Ur Leukocyte Esterase Mod (Negative) 04/14/17 11:16 Urine WBC (Auto) 132.0 /HPF (0.0-6.0) H 04/14/17 11:16 Urine RBC (Auto) 13.0 /HPF (0.0-6.0) 04/14/17 11:16 U Epithel Cells (Auto) 1.0 /HPF (0-13.0) 04/14/17 11:16 Urine Bacteria (Auto) 1+ /HPF (Negative) 04/14/17 11:16 Urine Mucus Few /HPF 04/14/17 11:16 Random Vancomycin 11.6 ug/mL (0-40.0) 04/18/17 06:42 Blood Type B POSITIVE 04/14/17 12:57 Antibody Screen TNR 04/14/17 12:57 FAROOQ Antibody Screen Negative 04/14/17 12:57 Crossmatch See Detail 04/14/17 12:57
[2017-04-19] MEDS: ELAVIL PO SCH (22:57)
[2017-04-19] MEDS: CUBICIN 500 MG in NACL 0.9% 100 ML IV SCH (22:57)
--- NOTE | 2017-04-20 03:27 | Consultation ---
TIME OF SERVICE: 10:50 in the morning. REQUESTING PHYSICIAN: Brenton Jones M.D. SOURCE OF INFORMATION: The patient herself as well as her old records were also reviewed. HISTORY OF PRESENT ILLNESS: The patient is a pleasant 76-year-old -[place] Citizen female who [facility] She was brought into the hospital with complaints of diffuse abdominal pain. The patient currently is being dialyzed through a Perm-A-Cath which is in the right upper chest and was noted to have a fever of 100.5. The patient was evaluated in the ER and was noted to have relative hypotension, blood pressure running between 70s and 90s systolic, bicarbonate 18, potassium 5.2, BUN 30, creatinine 2.4, hemoglobin 6.3, hematocrit 20.8 and platelet count 95,000. Consultation was placed for management of end-stage renal disease. CT scan obtained in the ER showed evidence of possible pancreatic mass 5 cm long, stricture of the sigmoid colon, bilateral pleural effusion, bilateral hemorrhagic renal cysts, and 2 cm hypodense mass of the pancreatic body and 2.5 cm mixed density fat containing mass in the lower part of the left kidney, possible lipoma. PAST MEDICAL HISTORY: Significant for: 1. End-stage renal disease, currently on maintenance hemodialysis. 2. Anemia on end-stage renal disease. 3. Secondary hyperparathyroidism. 4. Congestive heart failure. 5. Diabetes. 6. Asthma. CURRENT ALLERGIES: MILK AND WHEAT. HOME MEDICATIONS: Include amitriptyline, atorvastatin, hyoscyamine, magnesium oxide, melatonin, metoprolol, pantoprazole, Saccharomyces, and prednisone. SOCIAL HISTORY: The patient denies any history of alcohol, drugs or tobacco use. FAMILY HISTORY: Essentially noncontributory for renal-related disorder. REVIEW OF SYSTEMS: Positive for generalized weakness, abdominal pain which is diffuse and mostly periumbilical with some nausea, recent fever noted. Complete review of systems is obtained, pertinent positives mentioned above, other review of systems negative. PHYSICAL EXAMINATION: GENERAL: The patient is a pleasant 76-year-old -[place] Citizen female who is lying comfortably in bed, does not appear in acute distress. VITAL SIGNS: Reviewed from this admission. HEENT: Normocephalic, atraumatic skull. Extraocular movements are intact. Oral mucosa moist. NECK: Supple without thyromegaly. No mass or JVD. CHEST: Essentially clear to auscultation. Anteriorly Perm-A-Cath site appears to be essentially unremarkable. HEART: Regular rate, S1, S2 heard. No S3, S4. ABDOMEN: Soft, nontender. No voluntary guarding, rebound, organomegaly, or masses. EXTREMITIES: The patient does have no edema. Peripheral pulses palpable. No acute discoloration or cyanosis. ENDOCRINE: Thyroid not enlarged. PSYCHIATRIC: The patient is pleasant. LABS AND X-RAYS: Reviewed from this admission. CT scan report is as above. ASSESSMENT AND PLAN: 1. End-stage renal disease, currently on maintenance hemodialysis. The patient will be dialyzed this admission as long as she has a working access and otherwise doing well. 2. Hypotension and volume to monitor. Ultrafiltration as tolerated. Does not appear to have any significant volume overload. 3. Positive blood cultures noted with Gram-positive cocci. It could be resulting from her CBC. 4. Admitted with sepsis like picture, hypotension, lactic acidosis. Currently, doing better. To monitor and follow. 5. Anemia and end-stage renal disease. The patient will require packed red blood cell transfusion, workup for anemia. 6. Pancreatic mass to be seen and followed by GI in my opinion, she will benefit. 7. Renal mass noted. The patient will need a Urology evaluation, please consider. 8. Colonic stricture. The patient will benefit from a GI evaluation. Plan of care discussed with the patient. All questions were answered. At this point, we will dialyze her, followup on the blood culture. If the catheter is infected, she will need replacement of the catheter after a brief holiday until the repeat cultures are negative. She will benefit from Infectious Disease evaluation, GI evaluation and Urology evaluation, please consider. She will also need a Hematology evaluation if she still persistently remains anemic despite transfusion. We will continue to follow and make recommendations from a renal standpoint. Prognosis is guarded. JOB# [id number] EFE/MALINI
[2017-04-20 06:08] LABS: Hematocrit 24.6 % (30.3-42.9); Hemoglobin 7.9 gm/dl (10.1-14.3); Mean Corpuscular HGB Conc 32 % (30-34); Mean Corpuscular Hemoglobin 26 pg (28-32); Mean Corpuscular Volume 82 fl (79-97); Platelet Count 168 K/mm3 (140-440); Red Blood Count 3.01 M/mm3 (3.65-5.03); White Blood Count 13.6 K/mm3 (4.5-11.0)
[2017-04-20 06:37] LABS: BUN/Creatinine Ratio 17.69; Calcium 8.6 mg/dL (8.4-10.2); Chloride 105.7 mmol/L (98-107); Potassium 4.8 mmol/L (3.6-5.0)
--- NOTE | 2017-04-20 06:38 | Progress Note ---
Assessment and Plan - Patient Problems (1) Bacteremia due to Gram-positive bacteria Current Visit: Yes Status: Acute Plan to address problem: 1. Patient is on renally-adjusted Daptomycin. Repeat blood cultures remain negative. 2. Would continue Daptomycin, ideally dosed after HD, through May 01, 2017 . 3. Oral Linezolid 600mg q12h is an ALTERNATIVE to Daptomycin if cost is prohibitive. Continue through same duration. 4. CPK is within normal limits. Subjective Date of service: 04/20/17 Principal diagnosis: Staph aureus Bacteremia Interval history: No new clinical issues. Objective - Constitutional Vitals: Vital Signs Temp Pulse Resp BP Pulse Ox 98.3 F 94 H 14 140/74 99 04/20/17 04:00 04/20/17 04:00 04/20/17 04:00 04/20/17 04:00 04/20/17 04:00 Temperature -Last 24 Hours Temperature 98.3 F Temperature 97.9 F Temperature 98.7 F Temperature 97.7 F General appearance: Present: no acute distress - EENT Eyes: no scleral icterus - Respiratory Respiratory effort: normal Respiratory: bilateral: CTA - Cardiovascular Rhythm: regular Heart Sounds: Present: S1 & S2 Extremities: No edema - Gastrointestinal General gastrointestinal: Present: soft, tender, non-distended Localized gastrointestinal: rebound: epigastric periumbilical - Integumentary Integumentary: clear, no jaundice - Neurologic Neurologic: moves all extremities - Additional findings Additional findings: prior permcath site without inflammation - Labs CBC & Chem 7: 04/20/17 05:20 04/20/17 05:20 Labs: Abnormal lab results 04/20/17 Range/Units 05:20 WBC 13.6 H (4.5-11.0) K/mm3 RBC 3.01 L (3.65-5.03) M/mm3 Hgb 7.9 L (10.1-14.3) gm/dl Hct 24.6 L (30.3-42.9) % MCH 26 L (28-32) pg RDW 19.0 H (13.2-15.2) % Microbiology 04/17/17 18:57 Peripheral/Venous Blood Culture - Preliminary NO GROWTH AFTER 48 HOURS 04/17/17 18:26 Peripheral/Venous Blood Culture - Preliminary NO GROWTH AFTER 48 HOURS 04/17/17 15:31 Vascular Cath Catheter Tip Culture - Preliminary Staphylococcus Aureus Enterococcus Species 04/14/17 11:19 Peripheral/Venous Blood Culture - Final Methicillin Resist S. Aureus 04/14/17 12:03 Peripheral/Venous Blood Culture - Final Methicillin Resist S. Aureus 04/14/17 11:16 Urine,Catheterized - Straight Catheter Urine Culture - Final
[2017-04-20] MEDS: MAG-OX PO SCH ×2 (10:16→23:10)
[2017-04-20] MEDS: PROTONIX PO SCH (10:16)
[2017-04-20] MEDS: DELTASONE PO SCH (10:17)
[2017-04-20] MEDS: TOPROL XL PO SCH (10:18)
--- NOTE | 2017-04-20 10:45 | Progress Note ---
Assessment and Plan Impression: * Acute kidney injury secondary to ATN * Catheter related MRSA bacteremia - catheter removed 04/17 --TTE - no vegatations * Anemia secondary to ESRD * Secondary hyperparathyroidism Plan: * Patient admitted with TRISTON on March 27 - SCr 7.8mg/dL on admission. TRISTON was felt to be due to prerenal azotemia/ATN. Per nephrology note on day of discharge, patient w/ "improving renal function- monitor off dialysis". Creatinine was 2.0mg/dL on discharge (April 02); SCr 2.4mg/dL on this admission. Unsure if patient ever received dialysis as an outpatient as it does not appear to have been arranged or needed - have asked CM to assist in determining this. * No acute indication for dialysis at this time * Monitor over the weekend. Consider 24h urine CrCl pending labs tomorrow. * Abx per ID * Dose medications for renal function * Strict I/O Subjective Date of service: 04/20/17 Principal diagnosis: Staph aureus Bacteremia Interval history: Patient has no complaints today. Objective - Vital Signs Vital signs: Vital Signs - 12hr 04/19/17 04/20/17 04/20/17 23:32 04:00 07:00 Temperature 97.9 F 98.3 F 98.0 F Pulse Rate 94 H 94 H 96 H Respiratory 14 14 18 Rate Blood Pressure 148/72 140/74 132/68 O2 Sat by Pulse 97 99 96 Oximetry 04/20/17 10:18 Temperature Pulse Rate 96 H Respiratory Rate Blood Pressure O2 Sat by Pulse Oximetry - General Appearance General appearance: frail EENT: ATNC Respiratory: Present: Clear to Ascultation Cardiology: regular, S1S2 Gastrointestinal: normal, no tenderness, no distended Integumentary: no rash Musculoskeletal: other (no edema) Psychiatric: cooperative - Lab 04/20/17 05:20 04/20/17 05:20 Most recent lab results Calcium 8.6 mg/dL (8.4-10.2) 04/20/17 05:20
[2017-04-20 10:55] LABS: Blastocytes % (Manual) 0 %; Eosinophils % (Manual) 0 % (0.0-4.3)
[2017-04-20 10:56] LABS: Acanthocytes 1+; Anisocytosis 1+; Burr Cells 1+; Elliptocytes Few; Poikilocytosis 1+; Tear Drop Cells Rare
[2017-04-20 10:57] LABS: Diff Status Complete; Platelet Estimate Consistent w Auto
--- NOTE | 2017-04-20 18:04 | Progress Note ---
Assessment and Plan - Patient Problems (1) Sepsis Current Visit: Yes Status: Acute Qualifiers: Sepsis type: sepsis due to unspecified organism Qualified Code(s): A41.9 - Sepsis, unspecified organism Plan to address problem: Patient has MRSA.Her dialysis catheter removed, ID changed antibiotics to daptomycin Echocardiogram negative for valvular vegetations New dialysis catheter placement per vascular (2) Hypotension Current Visit: Yes Status: Resolved Qualifiers: Hypotension type: unspecified hypotension type Trimester: T Qualified Code(s): I95.9 - Hypotension, unspecified Plan to address problem: IV fluids for now. Prevent volume load. Patient has end-stage renal disease. (3) UTI (urinary tract infection) Current Visit: Yes Status: Acute Qualifiers: Urinary tract infection type: acute cystitis Hematuria presence: H Indwelling urinary catheter type: I Encounter type: E Plan to address problem: Patient on Zosyn (4) End stage renal disease Current Visit: Yes Status: Deleted Plan to address problem: Continue dialysis (5) Hyperlipidemia Current Visit: Yes Status: Chronic Qualifiers: Hyperlipidemia type: mixed hyperlipidemia Qualified Code(s): E78.2 - Mixed hyperlipidemia Plan to address problem: Continue atorvastatin (6) Diarrhea Current Visit: Yes Status: Acute Qualifiers: Diarrhea type: D Plan to address problem: Rule out C. difficile colitis. C. difficile antigen ordered. (7) DVT prophylaxis Current Visit: No Status: Chronic Plan to address problem: On heparin 5000 subcutaneous every 12 Subjective Date of service: 04/20/17 Principal diagnosis: Staph aureus Bacteremia Interval history: Patient comfortable. Objective - Exam Narrative Exam: Lying comfortably - Constitutional Vitals: Vital Signs - 12hr 04/20/17 04/20/17 04/20/17 07:00 10:18 11:00 Temperature 98.0 F 98.3 F Pulse Rate 96 H 96 H 95 H Respiratory 18 18 Rate Blood Pressure 132/68 116/69 O2 Sat by Pulse 96 94 Oximetry General appearance: Present: no acute distress, well-nourished - EENT Eyes: PERRL, EOM intact ENT: hearing intact, clear oral mucosa Ears: bilateral: normal - Neck Neck: supple, normal ROM - Respiratory Respiratory effort: normal Respiratory: bilateral: CTA - Breasts Breasts: normal - Cardiovascular Rhythm: regular Heart Sounds: Present: S1 & S2. Absent: gallop, rub Extremities: pulses intact, No edema, normal color, Full ROM - Gastrointestinal General gastrointestinal: Present: soft, non-tender, non-distended, normal bowel sounds - Genitourinary Female genitourinary: normal - Integumentary Integumentary: clear, warm, dry - Musculoskeletal Musculoskeletal: 1, strength equal bilaterally - Neurologic Neurologic: moves all extremities - Psychiatric Psychiatric: memory intact, appropriate mood/affect, intact judgment & insight - Labs CBC & Chem 7: 04/20/17 05:20 04/22/17 12:04 Labs: Abnormal lab results 04/20/17 04/20/17 Range/Units 05:20 05:20 WBC 13.6 H (4.5-11.0) K/mm3 RBC 3.01 L (3.65-5.03) M/mm3 Hgb 7.9 L (10.1-14.3) gm/dl Hct 24.6 L (30.3-42.9) % MCH 26 L (28-32) pg RDW 19.0 H (13.2-15.2) % Seg Neuts % (Manual) 87.0 H (40.0-70.0) % Lymphocytes % (Manual) 8.0 L (13.4-35.0) % Seg Neutrophils # Man 11.8 H (1.8-7.7) K/mm3 Lymphocytes # (Manual) 1.1 L (1.2-5.4) K/mm3 BUN 23 H (7-17) mg/dL Creatinine 1.3 H (0.7-1.2) mg/dL
[2017-04-20] MEDS: ELAVIL PO SCH (23:11)
[2017-04-21] MEDS: PROTONIX PO SCH (10:05)
[2017-04-21] MEDS: MAG-OX PO SCH ×2 (10:05→22:35)
[2017-04-21] MEDS: TOPROL XL PO SCH (10:12)
[2017-04-21] MEDS: DELTASONE PO SCH (10:12)
[2017-04-21 10:52] LABS: Calcium 8.7 mg/dL (8.4-10.2); Chloride 100.8 mmol/L (98-107); Potassium 4.6 mmol/L (3.6-5.0)
--- NOTE | 2017-04-21 15:10 | Progress Note ---
Assessment and Plan Impression: * Acute kidney injury secondary to ATN - resolved * Catheter related MRSA bacteremia - catheter removed 04/17 --TTE - no vegatations * Anemia secondary to ESRD * Secondary hyperparathyroidism Plan: * Patient admitted with TRISTON on March 27 - SCr 7.8mg/dL on admission. TRISTON was felt to be due to prerenal azotemia/ATN. Per nephrology note on day of discharge, patient w/ "improving renal function- monitor off dialysis". Creatinine was 2.0mg/dL on discharge (April 02); SCr 2.4mg/dL at admission on 04/14. Patient was not discharged to home/SNF with outpatient dialysis as she had evidence of recovery. * No acute indication for dialysis at this time. Renal function has likely recovered. No need for permcath reinsertion * Abx per ID * Dose medications for renal function * Strict I/O Subjective Date of service: 04/21/17 Principal diagnosis: Staph aureus Bacteremia Interval history: Patient has no complaints today. Objective - Vital Signs Vital signs: Vital Signs - 12hr 04/21/17 04/21/17 04/21/17 08:00 10:12 12:00 Temperature 97.2 F L 98.6 F Pulse Rate 101 H 101 H 99 H Respiratory 18 18 Rate Blood Pressure 127/71 127/68 O2 Sat by Pulse 99 98 Oximetry - General Appearance General appearance: well-developed, frail EENT: ATNC Respiratory: Present: Clear to Ascultation Cardiology: regular, S1S2 Gastrointestinal: normal, no tenderness, no distended Integumentary: no rash Musculoskeletal: other (no edema) Psychiatric: cooperative - Lab 04/20/17 05:20 04/21/17 10:09 Most recent lab results Calcium 8.7 mg/dL (8.4-10.2) 04/21/17 10:09
--- NOTE | 2017-04-21 18:33 | Progress Note ---
Assessment and Plan - Patient Problems (1) Sepsis Current Visit: Yes Status: Acute Qualifiers: Sepsis type: sepsis due to unspecified organism Qualified Code(s): A41.9 - Sepsis, unspecified organism Plan to address problem: Patient has MRSA.Her dialysis catheter removed, ID changed antibiotics to daptomycin Echocardiogram negative for valvular vegetations (2) Hypotension Current Visit: Yes Status: Resolved Qualifiers: Hypotension type: unspecified hypotension type Trimester: T Qualified Code(s): I95.9 - Hypotension, unspecified Plan to address problem: IV fluids for now. Prevent volume load. (3) UTI (urinary tract infection) Current Visit: Yes Status: Acute Qualifiers: Urinary tract infection type: acute cystitis Hematuria presence: H Indwelling urinary catheter type: I Encounter type: E Plan to address problem: Patient on Zosyn (4) Hyperlipidemia Current Visit: Yes Status: Chronic Qualifiers: Hyperlipidemia type: mixed hyperlipidemia Qualified Code(s): E78.2 - Mixed hyperlipidemia Plan to address problem: Continue atorvastatin (5) Diarrhea Current Visit: Yes Status: Acute Qualifiers: Diarrhea type: D Plan to address problem: Resolved (6) DVT prophylaxis Current Visit: No Status: Chronic Plan to address problem: On heparin 5000 subcutaneous every 12 Subjective Date of service: 04/21/17 Principal diagnosis: Staph aureus Bacteremia Interval history: Patient comfortable. Objective - Exam Narrative Exam: Lying comfortably - Constitutional Vitals: Vital Signs - 12hr 04/21/17 04/21/17 04/21/17 08:00 10:12 12:00 Temperature 97.2 F L 98.6 F Pulse Rate 101 H 101 H 99 H Respiratory 18 18 Rate Blood Pressure 127/71 127/68 O2 Sat by Pulse 99 98 Oximetry 04/21/17 04/21/17 15:00 16:50 Temperature 97.8 F Pulse Rate 102 H Respiratory 18 20 Rate Blood Pressure 133/67 O2 Sat by Pulse 99 Oximetry General appearance: Present: no acute distress, well-nourished - EENT Eyes: PERRL, EOM intact ENT: hearing intact, clear oral mucosa Ears: bilateral: normal - Neck Neck: supple, normal ROM - Respiratory Respiratory effort: normal Respiratory: bilateral: CTA - Breasts Breasts: normal - Cardiovascular Rhythm: regular Heart Sounds: Present: S1 & S2. Absent: gallop, rub Extremities: pulses intact, No edema, normal color, Full ROM - Gastrointestinal General gastrointestinal: Present: soft, non-tender, non-distended, normal bowel sounds - Genitourinary Female genitourinary: normal - Integumentary Integumentary: clear, warm, dry - Musculoskeletal Musculoskeletal: 1, strength equal bilaterally - Neurologic Neurologic: moves all extremities - Psychiatric Psychiatric: memory intact, appropriate mood/affect, intact judgment & insight - Labs CBC & Chem 7: 04/20/17 05:20 04/22/17 12:04 Labs: Abnormal lab results 04/21/17 Range/Units 10:09 BUN 21 H (7-17) mg/dL Creatinine 1.4 H (0.7-1.2) mg/dL Glucose 59 L (65-100) mg/dL
[2017-04-21] MEDS: CUBICIN 500 MG in NACL 0.9% 100 ML IV SCH (22:00)
[2017-04-21] MEDS: ELAVIL PO SCH (22:35)
--- NOTE | 2017-04-22 08:43 | Event Note ---
Date: 04/22/17 76 year old female with prior ARF who had PC. Discussed with Dr. Mora. Not ESRD, ARF. No need for further permcath. Discussed with Dr. Quiñones. Procedure cancelled.
[2017-04-22] MEDS: MAG-OX PO SCH ×2 (09:54→21:44)
[2017-04-22] MEDS: DELTASONE PO SCH (09:54)
[2017-04-22] MEDS: TOPROL XL PO SCH (10:23)
[2017-04-22] MEDS: PROTONIX PO SCH (10:24)
--- NOTE | 2017-04-22 10:51 | Progress Note ---
Assessment and Plan Impression: * Acute kidney injury secondary to ATN - resolved * Catheter related MRSA bacteremia - catheter removed 04/17 --TTE - no vegatations * Anemia * Secondary hyperparathyroidism Plan: * BMP pending * Patient admitted with TRISTON on March 27 - SCr 7.8mg/dL on admission. TRISTON was felt to be due to prerenal azotemia/ATN. Per nephrology note on day of discharge, patient w/ "improving renal function- monitor off dialysis". Patient was not discharged to home/SNF with outpatient dialysis as she had evidence of recovery. Creatinine was 2.0mg/dL on discharge (April 02); SCr 2.4mg /dL at admission on 04/14. * No acute indication for dialysis at this time. Renal function has likely recovered. * No need for permcath reinsertion - discussed with Dr. Oscar * Abx per ID * Dose medications for renal function * Strict I/O Subjective Date of service: 04/22/17 Principal diagnosis: Staph aureus Bacteremia Interval history: Patient has no complaints. Objective - Vital Signs Vital signs: Vital Signs - 12hr 04/22/17 04/22/17 04/22/17 00:00 04:00 07:00 Temperature 97.8 F 98.3 F 98.4 F Pulse Rate 80 82 91 H Respiratory 20 20 18 Rate Blood Pressure 134/63 125/70 129/60 O2 Sat by Pulse 99 100 Oximetry 04/22/17 10:23 Temperature Pulse Rate 91 H Respiratory Rate Blood Pressure 129/60 O2 Sat by Pulse Oximetry - General Appearance General appearance: well-developed, frail EENT: ATNC Cardiology: regular, S1S2 Gastrointestinal: normal, no tenderness, no distended Integumentary: no rash Musculoskeletal: other (no edema) Psychiatric: cooperative - Lab 04/20/17 05:20 04/21/17 10:09 Most recent lab results Calcium 8.7 mg/dL (8.4-10.2) 04/21/17 10:09
[2017-04-22 12:43] LABS: BUN/Creatinine Ratio 15.71; Calcium 8.1 mg/dL (8.4-10.2); Chloride 104.5 mmol/L (98-107); Potassium 4.4 mmol/L (3.6-5.0)
--- NOTE | 2017-04-22 14:04 | Progress Note ---
Assessment and Plan - Patient Problems (1) Bacteremia due to Gram-positive bacteria Current Visit: Yes Status: Acute Plan to address problem: 1. Repeat blood culture is positive, though drawn soon after tunneled catheter was removed AND prior to Daptomycin (high Vancomycin RYAN). 2. Will repeat blood culture. 3. Because patient will not continue HD for now, will change Daptomycin to oral Linezolid to complete a course tentatively until 2016. 4. Requesting case management assistance with outpatient Zyvox. Subjective Date of service: 04/22/17 Principal diagnosis: Staph aureus Bacteremia Interval history: Renal function is improved. No further HD is planned. Objective - Constitutional Vitals: Vital Signs Temp Pulse Resp BP Pulse Ox 98.4 F 91 H 18 129/60 100 04/22/17 07:00 04/22/17 10:23 04/22/17 07:00 04/22/17 10:23 04/22/17 07:00 Temperature -Last 24 Hours Temperature 98.4 F Temperature 98.3 F Temperature 97.8 F Temperature 98.4 F Temperature 97.8 F General appearance: Present: no acute distress, well-nourished - EENT Eyes: no scleral icterus - Respiratory Respiratory effort: normal Respiratory: bilateral: CTA - Cardiovascular Rhythm: regular Extremities: No edema - Gastrointestinal General gastrointestinal: Present: soft, tender, non-distended - Integumentary Integumentary: clear, no jaundice - Neurologic Neurologic: no focal deficits, moves all extremities - Psychiatric Psychiatric: appropriate mood/affect (pleasant) - Labs CBC & Chem 7: 04/20/17 05:20 04/22/17 12:04 Labs: Abnormal lab results 04/22/17 Range/Units 12:04 Carbon Dioxide 20 L (22-30) mmol/L BUN 22 H (7-17) mg/dL Creatinine 1.4 H (0.7-1.2) mg/dL Glucose 59 L (65-100) mg/dL Calcium 8.1 L (8.4-10.2) mg/dL Microbiology 04/17/17 18:57 Peripheral/Venous Blood Culture - Preliminary Methicillin Resist S. Aureus 04/17/17 18:26 Peripheral/Venous Blood Culture - Preliminary NO GROWTH AFTER 4 DAYS 04/17/17 15:31 Vascular Cath Catheter Tip Culture - Final Methicillin Resist S. Aureus Enterococcus Faecalis 04/14/17 11:19 Peripheral/Venous Blood Culture - Final Methicillin Resist S. Aureus 04/14/17 12:03 Peripheral/Venous Blood Culture - Final Methicillin Resist S. Aureus 04/14/17 11:16 Urine,Catheterized - Straight Catheter Urine Culture - Final
[2017-04-22] MEDS: ZYVOX PO SCH ×2 (16:02→21:43)
[2017-04-22] MEDS: ELAVIL PO SCH (21:44)
--- NOTE | 2017-04-23 10:00 | Progress Note ---
Assessment and Plan 1A) Bacteremia due to Gram-positive bacteria Current Visit: Yes Status: Acute Plan to address problem: 1. Repeat blood culture is positive, though drawn soon after tunneled catheter was removed AND prior to Daptomycin (high Vancomycin RYAN). 2. Will repeat blood culture. 3. Because patient will not continue HD for now, will change Daptomycin to oral Linezolid to complete a course tentatively until 2016. 4. Requesting case management assistance with outpatient Zyvox. Patient can be discharged tomorrow on Zyvox. [place] agreed for transfer on 04/23/17 - Patient Problems (1) Sepsis Current Visit: Yes Status: Acute Qualifiers: Sepsis type: sepsis due to unspecified organism Qualified Code(s): A41.9 - Sepsis, unspecified organism Plan to address problem: Patient has MRSA.Her dialysis catheter removed, ID changed antibiotics to oral Zyvox.No IV access. (2) Hypotension Current Visit: Yes Status: Resolved Qualifiers: Hypotension type: unspecified hypotension type Trimester: T Qualified Code(s): I95.9 - Hypotension, unspecified Plan to address problem: IV fluids for now. Prevent volume load. (3) UTI (urinary tract infection) Current Visit: Yes Status: Acute Qualifiers: Urinary tract infection type: acute cystitis Hematuria presence: H Indwelling urinary catheter type: I Encounter type: E Plan to address problem: Patient on Zosyn (4) Hyperlipidemia Current Visit: Yes Status: Chronic Qualifiers: Hyperlipidemia type: mixed hyperlipidemia Qualified Code(s): E78.2 - Mixed hyperlipidemia Plan to address problem: Continue atorvastatin (5) Diarrhea Current Visit: Yes Status: Acute Qualifiers: Diarrhea type: D Plan to address problem: Rule out C. difficile colitis. C. difficile antigen ordered. (6) DVT prophylaxis Current Visit: No Status: Chronic Plan to address problem: On heparin 5000 subcutaneous every 12 (7) Discharge planning issues Current Visit: Yes Status: Acute Plan to address problem: Patient maybe discharged on 04/23/17 .[place] has accepted the patient Subjective Date of service: 05/23/17 Principal diagnosis: Staph aureus Bacteremia Interval history: Late entry Patient comfortable. Objective - Exam Narrative Exam: Lying comfortably - Constitutional Vitals: Vital Signs - 12hr 04/22/17 04/23/17 22:00 07:50 Temperature 98.2 F Pulse Rate 98 H Respiratory 18 20 Rate Blood Pressure 124/74 O2 Sat by Pulse 98 100 Oximetry - Labs CBC & Chem 7: 04/20/17 05:20 04/22/17 12:04 Labs: Abnormal lab results 04/22/17 04/22/17 Range/Units 12:04 14:53 Carbon Dioxide 20 L (22-30) mmol/L BUN 22 H (7-17) mg/dL Creatinine 1.4 H (0.7-1.2) mg/dL Glucose 59 L (65-100) mg/dL POC Glucose 128 H (70-105) Calcium 8.1 L (8.4-10.2) mg/dL
[2017-04-23] MEDS: DELTASONE PO SCH (11:43)
[2017-04-23] MEDS: ZYVOX PO SCH ×2 (11:43→21:53)
[2017-04-23] MEDS: TOPROL XL PO SCH (11:43)
[2017-04-23] MEDS: MAG-OX PO SCH ×2 (11:44→21:53)
[2017-04-23] MEDS: PROTONIX PO SCH (11:44)
--- NOTE | 2017-04-23 12:30 | Progress Note ---
Assessment and Plan Assessment and plan: --Sepsis secondary to MRSA Her dialysis catheter removed, ID change antibiotics to daptomycin to Zyvox Stop date May 07, Echocardiogram negative for valvular vegetations No new catheter needed at this point in view of much improved renal function --Hypotension at the time of admission, her blood pressures are reasonable level --Leukocytosis secondary to sepsis, trending down --End-stage renal disease on hemodialysis; renal function significantly improved no hemodialysis recommended at this point --Chronic anemia secondary to end-stage renal disease, Iron Supplements, --Dyslipidemia; stable on lipid-lowering medications --Pancreatic mass Surgery evaluation noted ,conservative management at this point in view of MRSA bacteremia Consider GI evaluation if needed --DVT prophylaxis; with heparin renal dose --Full CODE STATUS DC planning; patient medically stable for discharge home with home health versus SNF placement Case management sitting up care home facility placement, can be transferred when processed History Interval history: Patient seen and examined, medical records reviewed Patient feels better no new complaints, patient is stable to discharge home on Zyvox per ID However case management is working for SNF placement Vital Signs reviewed Hospitalist Physical - Constitutional Vitals: Temp Pulse Resp BP Pulse Ox 98.2 F 98 H 20 124/74 100 04/23/17 07:50 04/23/17 07:50 04/23/17 07:50 04/23/17 11:43 04/23/17 07:50 General appearance: Present: no acute distress, well-nourished - EENT Eyes: Present: PERRL, EOM intact - Neck Neck: Present: supple, normal ROM - Respiratory Respiratory effort: normal Respiratory: negative: rales, rhonchi, wheezing - Cardiovascular Rhythm: regular Heart Sounds: Present: S1 & S2 - Extremities Extremities: no ischemia, No edema - Abdominal General gastrointestinal: soft, non-tender, non-distended, normal bowel sounds - Integumentary Integumentary: Present: clear, warm - Psychiatric Psychiatric: appropriate mood/affect, cooperative - Neurologic Neurologic: CNII-XII intact, moves all extremities Results - Labs CBC & Chem 7: 04/20/17 05:20 04/22/17 12:04 Labs: Laboratory Last Values WBC 13.6 K/mm3 (4.5-11.0) H 04/20/17 05:20 RBC 3.01 M/mm3 (3.65-5.03) L 04/20/17 05:20 Hgb 7.9 gm/dl (10.1-14.3) L 04/20/17 05:20 Hct 24.6 % (30.3-42.9) L 04/20/17 05:20 MCV 82 fl (79-97) 04/20/17 05:20 MCH 26 pg (28-32) L 04/20/17 05:20 MCHC 32 % (30-34) 04/20/17 05:20 RDW 19.0 % (13.2-15.2) H 04/20/17 05:20 Plt Count 168 K/mm3 (140-440) 04/20/17 05:20 Lymph % (Auto) 3.2 % (13.4-35.0) L 04/14/17 11:19 Noble % (Auto) 7.6 % (0.0-7.3) H 04/14/17 11:19 Eos % (Auto) 0.1 % (0.0-4.3) 04/14/17 11:19 Baso % (Auto) 0.3 % (0.0-1.8) 04/14/17 11:19 Lymph # 0.4 K/mm3 (1.2-5.4) L 04/14/17 11:19 Noble # 1.0 K/mm3 (0.0-0.8) H 04/14/17 11:19 Eos # 0.0 K/mm3 (0.0-0.4) 04/14/17 11:19 Baso # 0.0 K/mm3 (0.0-0.1) 04/14/17 11:19 Add Manual Diff Complete 04/20/17 05:20 Total Counted 100 04/20/17 05:20 Seg Neutrophils % 88.8 % (40.0-70.0) H 04/14/17 11:19 Seg Neuts % (Manual) 87.0 % (40.0-70.0) H 04/20/17 05:20 Band Neutrophils % 2.0 % 04/20/17 05:20 Lymphocytes % (Manual) 8.0 % (13.4-35.0) L 04/20/17 05:20 Reactive Lymphs % (Man) 0 % 04/20/17 05:20 Monocytes % (Manual) 3.0 % (0.0-7.3) 04/20/17 05:20 Eosinophils % (Manual) 0 % (0.0-4.3) 04/20/17 05:20 Basophils % (Manual) 0 % (0.0-1.8) 04/18/17 06:42 Metamyelocytes % 0 % 04/20/17 05:20 Myelocytes % 0 % 04/20/17 05:20 Promyelocytes % 0 % 04/20/17 05:20 Blast Cells % 0 % 04/20/17 05:20 Nucleated RBC % Not Reportable 04/20/17 05:20 Seg Neutrophils # 12.1 K/mm3 (1.8-7.7) H 04/14/17 11:19 Seg Neutrophils # Man 11.8 K/mm3 (1.8-7.7) H 04/20/17 05:20 Band Neutrophils # 0.3 K/mm3 04/20/17 05:20 Lymphocytes # (Manual) 1.1 K/mm3 (1.2-5.4) L 04/20/17 05:20 Abs React Lymphs (Man) 0.0 K/mm3 04/20/17 05:20 Monocytes # (Manual) 0.4 K/mm3 (0.0-0.8) 04/20/17 05:20 Eosinophils # (Manual) 0.0 K/mm3 (0.0-0.4) 04/20/17 05:20 Basophils # (Manual) 0.0 K/mm3 (0.0-0.1) 04/20/17 05:20 Metamyelocytes # 0.0 K/mm3 04/20/17 05:20 Myelocytes # 0.0 K/mm3 04/20/17 05:20 Promyelocytes # 0.0 K/mm3 04/20/17 05:20 Blast Cells # 0.0 K/mm3 04/20/17 05:20 WBC Morphology Not Reportable 04/20/17 05:20 Hypersegmented Neuts Not Reportable 04/20/17 05:20 Hyposegmented Neuts Not Reportable 04/20/17 05:20 Hypogranular Neuts Not Reportable 04/20/17 05:20 Smudge Cells Not Reportable 04/20/17 05:20 Toxic Granulation Not Reportable 04/20/17 05:20 Toxic Vacuolation Not Reportable 04/20/17 05:20 Dohle Bodies Not Reportable 04/20/17 05:20 Pelger-Huet Anomaly Not Reportable 04/20/17 05:20 Jyoti Rods Not Reportable 04/20/17 05:20 Platelet Estimate Consistent w auto 04/20/17 05:20 Clumped Platelets Not Reportable 04/20/17 05:20 Plt Clumps, EDTA Not Reportable 04/20/17 05:20 Large Platelets Not Reportable 04/20/17 05:20 Giant Platelets Not Reportable 04/20/17 05:20 Platelet Satelliting Not Reportable 04/20/17 05:20 Plt Morphology Comment Not Reportable 04/20/17 05:20 RBC Morphology Not Reportable 04/20/17 05:20 Dimorphic RBCs Not Reportable 04/20/17 05:20 Polychromasia Not Reportable 04/20/17 05:20 Hypochromasia Not Reportable 04/20/17 05:20 Poikilocytosis 1+ 04/20/17 05:20 Anisocytosis 1+ 04/20/17 05:20 Microcytosis Not Reportable 04/20/17 05:20 Macrocytosis Not Reportable 04/20/17 05:20 Spherocytes Not Reportable 04/20/17 05:20 Pappenheimer Bodies Not Reportable 04/20/17 05:20 Sickle Cells Not Reportable 04/20/17 05:20 Target Cells Not Reportable 04/20/17 05:20 Tear Drop Cells Rare 04/20/17 05:20 Ovalocytes Not Reportable 04/20/17 05:20 Helmet Cells Not Reportable 04/20/17 05:20 Godinez-[place] Bodies Not Reportable 04/20/17 05:20 Grenola Rings Not Reportable 04/20/17 05:20 Goldie Cells 1+ 04/20/17 05:20 Bite Cells Not Reportable 04/20/17 05:20 Crenated Cell Not Reportable 04/20/17 05:20 Elliptocytes Few 04/20/17 05:20 Acanthocytes (Spur) 1+ 04/20/17 05:20 Rouleaux Not Reportable 04/20/17 05:20 Hemoglobin C Crystals Not Reportable 04/20/17 05:20 Schistocytes Not Reportable 04/20/17 05:20 Malaria parasites Not Reportable 04/20/17 05:20 Colton Bodies Not Reportable 04/20/17 05:20 Hem Pathologist Commnt No 04/20/17 05:20 PT 15.9 Sec. (12.2-14.9) H 04/14/17 11:19 INR 1.21 (0.87-1.13) H 04/14/17 11:19 POC ABG pH 7.504 (7.35-7.45) H 04/15/17 00:24 POC ABG pCO2 28.4 (35-45) L 04/15/17 00:24 POC ABG pO2 240 (80-105) H 04/15/17 00:24 POC ABG HCO3 22.4 04/15/17 00:24 POC ABG Total CO2 23 04/15/17 00:24 POC ABG O2 Sat 100 04/15/17 00:24 POC ABG Base Excess -1 04/15/17 00:24 VBG pH 7.396 (7.320-7.420) 04/14/17 11:19 FiO2 50 % 04/15/17 00:24 Sodium 140 mmol/L (137-145) 04/22/17 12:04 Potassium 4.4 mmol/L (3.6-5.0) 04/22/17 12:04 Chloride 104.5 mmol/L (98-107) 04/22/17 12:04 Carbon Dioxide 20 mmol/L (22-30) L 04/22/17 12:04 Anion Gap 20 mmol/L 04/22/17 12:04 BUN 22 mg/dL (7-17) H 04/22/17 12:04 Creatinine 1.4 mg/dL (0.7-1.2) H 04/22/17 12:04 Estimated GFR 44 ml/min 04/22/17 12:04 BUN/Creatinine Ratio 15.71 % 04/22/17 12:04 Glucose 59 mg/dL (65-100) L 04/22/17 12:04 POC Glucose 128 (70-105) H 04/22/17 14:53 Lactic Acid 1.70 mmol/L (0.7-2.0) 04/14/17 14:05 Calcium 8.1 mg/dL (8.4-10.2) L 04/22/17 12:04 Total Bilirubin 0.30 mg/dL (0.1-1.2) 04/14/17 11:19 AST 8 units/L (5-40) 04/14/17 11:19 ALT < 5 units/L (7-56) L 04/14/17 11:19 Alkaline Phosphatase 58 units/L (35-129) 04/14/17 11:19 Total Creatine Kinase 14 units/L (30-135) L 04/19/17 04:57 Total Protein 4.8 g/dL (6.3-8.2) L 04/14/17 11:19 Albumin 2.1 g/dL (3.9-5) L 04/14/17 11:19 Albumin/Globulin Ratio 0.8 % 04/14/17 11:19 Lipase 13 units/L (13-60) 04/14/17 11:19 Urine Color Yellow (Yellow) 04/14/17 11:16 Urine Turbidity Cloudy (Clear) 04/14/17 11:16 Urine pH 5.0 (5.0-7.0) 04/14/17 11:16 Ur Specific Golden 1.014 (1.003-1.030) 04/14/17 11:16 Urine Protein 30 mg/dl mg/dL (Negative) 04/14/17 11:16 Urine Glucose (UA) Neg mg/dL (Negative) 04/14/17 11:16 Urine Ketones Tr mg/dL (Negative) 04/14/17 11:16 Urine Blood Sm (Negative) 04/14/17 11:16 Urine Nitrite Neg (Negative) 04/14/17 11:16 Urine Bilirubin Neg (Negative) 04/14/17 11:16 Urine Urobilinogen < 2.0 mg/dL (<2.0) 04/14/17 11:16 Ur Leukocyte Esterase Mod (Negative) 04/14/17 11:16 Urine WBC (Auto) 132.0 /HPF (0.0-6.0) H 04/14/17 11:16 Urine RBC (Auto) 13.0 /HPF (0.0-6.0) 04/14/17 11:16 U Epithel Cells (Auto) 1.0 /HPF (0-13.0) 04/14/17 11:16 Urine Bacteria (Auto) 1+ /HPF (Negative) 04/14/17 11:16 Urine Mucus Few /HPF 04/14/17 11:16 Random Vancomycin 11.6 ug/mL (0-40.0) 04/18/17 06:42 Blood Type B POSITIVE 04/14/17 12:57 Antibody Screen TNR 04/14/17 12:57 FAROOQ Antibody Screen Negative 04/14/17 12:57 Crossmatch See Detail 04/14/17 12:57
--- NOTE | 2017-04-23 12:33 | Progress Note ---
Assessment and Plan Impression: * Acute kidney injury secondary to ATN - resolved * Catheter related MRSA bacteremia - catheter removed 04/17 --TTE - no vegatations * Anemia Plan: * Renal function remains stable * Patient admitted with TRISTON on March 27 - SCr 7.8mg/dL on admission. TRISTON was felt to be due to prerenal azotemia/ATN. Per nephrology note on day of discharge, patient w/ "improving renal function- monitor off dialysis". Patient was not discharged to home/SNF with outpatient dialysis as she had evidence of recovery. Creatinine was 2.0mg/dL on discharge (April 02); SCr 2.4mg /dL at admission on 04/14. * No acute indication for dialysis at this time. Renal function has likely recovered. * No need for permcath reinsertion * Abx per ID * Will see prn Subjective Date of service: 04/23/17 Principal diagnosis: Staph aureus Bacteremia Interval history: Patient has no complaints today. Objective - Vital Signs Vital signs: Vital Signs - 12hr 04/23/17 04/23/17 07:50 11:43 Temperature 98.2 F Pulse Rate 98 H Respiratory 20 Rate Blood Pressure 124/74 124/74 O2 Sat by Pulse 100 Oximetry - General Appearance General appearance: well-developed, well-nourished EENT: ATNC Respiratory: Present: Clear to Ascultation Cardiology: regular, S1S2 Gastrointestinal: normal, no tenderness, no distended Integumentary: no rash Neurologic: other (pleasantly confused) Psychiatric: cooperative - Lab 04/20/17 05:20 04/22/17 12:04 Most recent lab results Calcium 8.1 mg/dL (8.4-10.2) L 04/22/17 12:04
--- NOTE | 2017-04-23 15:43 | Progress Note ---
Assessment and Plan - Patient Problems (1) Bacteremia due to Gram-positive bacteria Current Visit: Yes Status: Acute Plan to address problem: 1. Patient is persistently bacteremic despite permcath removal. 2. The echocardiogram showed an echogenic structure in the right atrium. This was prior to permcath removal. 3. Recommend REPEAT ECHOCARDIOGRAM to see if this structure remains or was an appendage possibly of catheter. 4. Keep oral Linezolid for now. (2) Thrombus in heart chamber Current Visit: Yes Status: Acute Plan to address problem: See above regarding echocardiogram. Subjective Date of service: 04/23/17 Principal diagnosis: Staph aureus Bacteremia Interval history: Patient continues to have positive blood cultures. She has no new complaints. Just wants to go home. Objective - Constitutional Vitals: Vital Signs Temp Pulse Resp BP Pulse Ox 98.2 F 98 H 20 124/74 100 04/23/17 07:50 04/23/17 07:50 04/23/17 07:50 04/23/17 11:43 04/23/17 07:50 Temperature -Last 24 Hours Temperature 98.2 F Temperature 98.2 F Temperature 97.5 F General appearance: Present: no acute distress, well-nourished - Neck Neck: supple - Respiratory Respiratory effort: normal, other (mild tenderness, no swelling over prior permcath site) Respiratory: bilateral: CTA - Cardiovascular Rhythm: regular Heart Sounds: Present: S1 & S2. Absent: systolic murmur Extremities: No edema - Gastrointestinal General gastrointestinal: Present: soft, non-distended - Integumentary Integumentary: no jaundice, no rash - Neurologic Neurologic: moves all extremities - Psychiatric Psychiatric: appropriate mood/affect - Labs CBC & Chem 7: 04/20/17 05:20 04/22/17 12:04 Labs: Microbiology 04/22/17 14:44 Peripheral/Venous Blood Culture - Preliminary NO GROWTH AFTER 24 HOURS 04/22/17 15:21 Peripheral/Venous Blood Culture - Preliminary (GPC clusters) 04/17/17 18:57 Peripheral/Venous Blood Culture - Preliminary Methicillin Resist S. Aureus 04/17/17 18:26 Peripheral/Venous Blood Culture - Final NO GROWTH AFTER 5 DAYS 04/17/17 15:31 Vascular Cath Catheter Tip Culture - Final Methicillin Resist S. Aureus Enterococcus Faecalis 04/14/17 11:19 Peripheral/Venous Blood Culture - Final Methicillin Resist S. Aureus 04/14/17 12:03 Peripheral/Venous Blood Culture - Final Methicillin Resist S. Aureus 04/14/17 11:16 Urine,Catheterized - Straight Catheter Urine Culture - Final - Imaging and cardiology Other: report reviewed (echogenic structure in right atrium)
[2017-04-23] MEDS: ELAVIL PO SCH (21:53)
[2017-04-24 06:05] LABS: Hematocrit 22.5 % (30.3-42.9); Hemoglobin 7.2 gm/dl (10.1-14.3); Mean Corpuscular HGB Conc 32 % (30-34); Mean Corpuscular Hemoglobin 27 pg (28-32); Mean Corpuscular Volume 83 fl (79-97); Platelet Count 241 K/mm3 (140-440); Red Blood Count 2.71 M/mm3 (3.65-5.03); Red Cell Distribution Width 18.6 % (13.2-15.2); White Blood Count 12.1 K/mm3 (4.5-11.0)
[2017-04-24 06:19] LABS: BUN/Creatinine Ratio 13.07; Calcium 8.3 mg/dL (8.4-10.2); Chloride 104.7 mmol/L (98-107); Potassium 4.3 mmol/L (3.6-5.0)
[2017-04-24 06:56] LABS: Basophils % (Manual) 0 % (0.0-1.8); Blastocytes % (Manual) 0 %; Eosinophils % (Manual) 0 % (0.0-4.3)
[2017-04-24 06:58] LABS: Acanthocytes Few; Anisocytosis 1+; Crenated RBC 1+; Diff Status Complete; Platelet Estimate Consistent w Auto; Poikilocytosis 1+
[2017-04-24] MEDS ORDERED: PERCOCET 5/325 PO PRN (10:11)
[2017-04-24] MEDS: DELTASONE PO SCH (10:42)
[2017-04-24] MEDS: PROTONIX PO SCH (10:43)
[2017-04-24] MEDS: ZYVOX PO SCH (10:43)
[2017-04-24] MEDS: MAG-OX PO SCH (10:43)
[2017-04-24] MEDS: TOPROL XL PO SCH (10:44)
--- NOTE | 2017-04-24 15:21 | Discharge Summary ---
Providers - Providers Date of Admission: 04/14/17 14:41 Date of discharge: 04/24/17 Attending physician: LAURA SCHERER 04/15/17 11:56 Consult to Physician [CONS] Routine Consulting Provider: YVONNE SILVA Reason For Exam: Gm positive bacteremia Place consult to:: dr. isidro caballero Notified:: office Phone number called:: [phone] Was contact made?: Yes Time called:: 14:08 04/16/17 18:22 Consult to Physician [CONS] Routine Consulting Provider: NELY VEGA Reason For Exam: pancreatic mass CT abdomen Place consult to:: dr. vega Notified:: office Phone number called:: Was contact made?: Yes If yes, spoke with:: alysa Time called:: 09:51 04/17/17 09:58 Consult to Physician [CONS] Routine Consulting Provider: MELISSA CASTILLO Reason For Exam: central venous catheter removal Place consult to:: dr. castillo Notified:: overhead paged Phone number called:: Was contact made?: Yes If yes, spoke with:: dr. castillo Time called:: 10:44 04/22/17 11:03 Physical Therapy Evaluation and Treat [CONS] Routine Comment: Reason For Exam: placement/deconditioning 04/22/17 14:08 Consult to Case Management [CONS] Routine Services Needed at Discharge: Other Notified:: cm Comment:: Assistance getting Linezolid 600mg PO q12h approved (through 2016) Primary care physician: [employer] PERSON Hospitalization Reason for admission: Fever and abdominal pain of 2 days' duration Condition: Critical Pertinent studies: The tunnel dialysis catheter was successfully removed Chest x-ray; cardiomegaly, trachea in midline, tip of the right vascular catheter in the upper superior vena cava, linear densities identified left lower lobe probably related to discoid atelectasis or scarring no consolidation CT abdomen and pelvis; 2 cm hypodense mass in the pancreatic body suspicious for tumor Recommend MRI without and with contrast 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 Patient was initially evaluated and admitted to the hospital symptomatically managed Patient had sepsis secondary to gram-positive bacteremia MRSA , infectious diseases has evaluated the patient treated with appropriate antibiotics recommend removal of the dialysis catheter, And blood cultures after the catheter removal Patient was hypotensive probably septic shock significantly improved with symptomatic management Nephrology evaluated the patient received hemodialysis per schedule Patient had pancreatic mass on CT scan, surgery evaluated in consultation, no immediate intervention is recommended at this point in view of sepsis, outpatient evaluation when patient is more stable Vascular has evaluated the patient and removed the infected dialysis catheter Patient was closely monitored, renal function significantly improved, nephrology decided not to dialyze the patient anymore but closely monitor Date of discharge patient is comfortable no new complaints Vital signs are stable [id number] evaluation physical examination done by me prior to discharge is unremarkable, patient is hemodynamically and clinically stable for discharge today to [facility] ID has recommended Zyvox and repeat echocardiogram, to evaluate the echogenic structure in the right atrium after removal of the catheter, patient was advised outpatient echo and follow up with ID Disposition: [id number] [facility] Time spent for discharge: 35 min Core Measure Documentation - Palliative Care Palliative Care/ Comfort Measures: Not Applicable - Core Measures Any of the following diagnoses?: none Exam - Constitutional Vitals: Temp Pulse Resp BP Pulse Ox 98 F 92 H 18 127/61 100 04/24/17 08:00 04/24/17 08:00 04/24/17 08:00 04/24/17 10:44 04/24/17 08:00 General appearance: Present: no acute distress, well-nourished - EENT Eyes: Present: PERRL, EOM intact - Neck Neck: Present: supple, normal ROM - Respiratory Respiratory effort: normal Respiratory: negative: rales, rhonchi, wheezing - Cardiovascular Rhythm: regular Heart Sounds: Present: S1 & S2 - Extremities Extremities: no ischemia, No edema Peripheral Pulses: within normal limits - Abdominal General gastrointestinal: Present: soft, non-tender, non-distended, normal bowel sounds - Integumentary Integumentary: Present: clear, warm - Musculoskeletal Musculoskeletal: strength equal bilaterally - Psychiatric Psychiatric: appropriate mood/affect, cooperative - Neurologic Neurologic: CNII-XII intact, moves all extremities Plan Activity: advance as tolerated, fall precautions Diet: other (cardiac diet) Special Instructions: physical therapy Additional Instructions: If you have chest pain or shortness of breath contact M.D. or go to emergency room. Outpatient echocardiogram in 2 weeks per ID Follow up with: PRIMARY CARE, [Primary Care Provider] - 3-5 Days GYPSY AGUILAR MD [Staff Physician] - 7 Days YVONNE SILVA MD [Staff Physician] - 7 Days Prescriptions: RX: Ferrous Sulfate [Feosol 325 MG tab] 325 mg PO BID #60 tablet RX: Linezolid [Zyvox] 600 mg PO BID #27 tablet RX: oxyCODONE /ACETAMINOPHEN [Percocet 5/325 mg] 1 tab PO QHS PRN #10 tablet PRN Reason: Pain, Moderate (4-6)
[2017-04-24 17:34] VITALS: BP 132/68
== END 2017-04-24 17:45 | DRG 314 ==
LOC: ED 10:57 → 3A 14:41
PROVIDERS: ADMIT Internal Medicine; ATTEND Internal Medicine
PROC: 30233N1 Transfusion of Nonautologous Red Blood Cells into Peripheral Vein, Percutaneous Approach (ICD-10-PCS; principal; 2017-04-15)
PROC: 4A033R1 Measurement of Arterial Saturation, Peripheral, Percutaneous Approach (ICD-10-PCS; 2017-04-15)
PROC: 5A1D00Z (ICD-10-PCS; 2017-04-16)
PROC: 0JPTXXZ Removal of Tunneled Vascular Access Device from Trunk Subcutaneous Tissue and Fascia, External Approach (ICD-10-PCS; 2017-04-17)
DX: T82.7XXA Infection and inflammatory reaction due to other cardiac and vascular devices, implants and grafts, initial encounter (principal); A41.01 Sepsis due to Methicillin susceptible Staphylococcus aureus; N18.6 End stage renal disease; N17.0 Acute kidney failure with tubular necrosis; N39.0 Urinary tract infection, site not specified; E46 Unspecified protein-calorie malnutrition; I13.2 Hypertensive heart and chronic kidney disease with heart failure and with stage 5 chronic kidney disease, or end stage renal disease; E78.5 Hyperlipidemia, unspecified; R19.7 Diarrhea, unspecified; I50.9 Heart failure, unspecified; J45.909 Unspecified asthma, uncomplicated; E03.9 Hypothyroidism, unspecified; K21.9 Gastro-esophageal reflux disease without esophagitis; M32.9 Systemic lupus erythematosus, unspecified; E11.51 Type 2 diabetes mellitus with diabetic peripheral angiopathy without gangrene; K86.9 Disease of pancreas, unspecified; N28.1 Cyst of kidney, acquired; I51.3 Intracardiac thrombosis, not elsewhere classified; D63.1 Anemia in chronic kidney disease; Z68.23 Body mass index [BMI] 23.0-23.9, adult; Z91.011 Allergy to milk products; Z86.718 Personal history of other venous thrombosis and embolism; Z79.899 Other long term (current) drug therapy; Z82.49 Family history of ischemic heart disease and other diseases of the circulatory system; Z91.018 Allergy to other foods
CPT/HCPCS: 36415; 36600; 71010; 74000; 74176; 80048; 80053; 80202; 81001; 82140; 82550; 82803; 82805; 82962; 83690; 85007; 85025; 85027; 85610; 86403; 86850; 86900; 86901; 86920; 87040; 87076; 87086; 87116; 87186; 90732; 93005; 93010; 93308; 93321; 93325; 94760; 96361; 96365; 96367; A9270-GY; G8978-GP; G8979-GP; J0878; J1170; J2543; J3370; J7030; J7040; J7512; P9016